=== PATIENT | female | born 1960 | race Caucasian/White ===

== ENCOUNTER → 2017-07-22 17:54 | Outpatient (CLI) | payer MEDICAID ==
[2012-04-29 14:38] VITALS: BMI 21.9
== END | disposition home or self-care (01) ==
LOC: D.MAMMO 15:45
DX: Z12.31 Encounter for screening mammogram for malignant neoplasm of breast (principal)

== ENCOUNTER 2017-08-15 16:32 | Emergency (ER) | payer MEDICAID ==
[2012-04-29 14:38] VITALS: BMI 21.9
[2017-08-15 18:44] LABS: BASOPHILS 0.3 % (0-2); EOSINOPHILS 2.7 % (0-7); HEMATOCRIT 35.6 % (36.0-48.0); HEMOGLOBIN 11.5 g/dL (12-16); IMMATURE GRANULOCYTES 0.1 % (0-5); LYMPHOCYTES 42.8 % (15-50); MCH 30.1 pg (26.0-34.0); MCHC 32.3 g/dL (31.0-37.0); MCV 93.2 fL (80.0-100.0); MEAN PLATELET VOLUME 9.6 fL (7.4-10.4); MONOCYTES 10.8 % (2-11); NEUTROPHILS 43.3 % (40-80); PLATELET COUNT 276 10x3/uL (130-400); RBC 3.82 10x6/uL (4.00-5.40); RDW 13.4 % (11.5-14.5); WBC 6.8 10x3/uL (4.8-10.8)
[2017-08-15 18:57] LABS: ALBUMIN 3.3 g/dL (3.4-5.0); ANION GAP 9.6 mmol/L (8-16); BILIRUBIN - TOTAL 0.21 mg/dL (0.2-1.3); CALCIUM 9.7 mg/dL (8.5-10.1); CARBON DIOXIDE 28.1 mmol/L (21.0-32.0); CREATININE - SERUM 0.9 mg/dL (0.6-1.3); POTASSIUM - SERUM 3.7 mmol/L (3.5-5.1); PROTEIN - SERUM 7.1 g/dL (6.4-8.2)
[2017-08-15 19:18] LABS: HCG SERUM NEGATIVE (NEGATIVE)
== END 2017-08-15 20:10 | disposition home or self-care (01) ==
LOC: D.ER 16:32
PROVIDERS: Family Medicine; Physician Assistant Medical
DX: S60.222A Contusion of left hand, initial encounter (principal); S60.212A Contusion of left wrist, initial encounter; S50.02XA Contusion of left elbow, initial encounter; S40.012A Contusion of left shoulder, initial encounter; V43.52XA Car driver injured in collision with other type car in traffic accident, initial encounter; Y93.89 Activity, other specified; Y92.410 Unspecified street and highway as the place of occurrence of the external cause; S16.1XXA Strain of muscle, fascia and tendon at neck level, initial encounter; S29.012A Strain of muscle and tendon of back wall of thorax, initial encounter; I10 Essential (primary) hypertension

== ENCOUNTER 2018-05-21 22:12 | Emergency (ER) | payer SELFPAY ==
[~2018-05-21] VITALS: Ht 170.2 cm; Wt 75.0 kg
[2018-05-21 22:34] VITALS: Ht 170.2 cm; Wt 75.0 kg
[2018-05-21] MEDS ORDERED: ZIAC 10-6.25 MG1 TAB PO (22:38)
[2018-05-21] MEDS ORDERED: CYMBALTA20 MG PO (22:39)
[2018-05-21] MEDS ORDERED: ATIVAN1 MG PO (22:39)
[2018-05-21] MEDS ORDERED: SYNTHROID125 MCG PO (22:39)
[2018-05-21] MEDS ORDERED: MOBIC7.5 MG PO (22:39)
[2018-05-22] MEDS ORDERED: MEDROL DOSE PACK4 MG PO (01:11)
[2018-05-22] MEDS ORDERED: TESSALON PERLE100 MG PO (01:11)
[2018-05-22] MEDS ORDERED: VALIUM 2 MG TAB2 MG PO (01:11)
[2018-05-22] MEDS ORDERED: ULTRAM50 MG PO (01:11)
[2018-05-22 01:38] VITALS: BP 171/100
== END 2018-05-22 01:39 | disposition home or self-care (01) ==
LOC: D.ER 22:12
DX: S01.01XA Laceration without foreign body of scalp, initial encounter (principal); W18.09XA Striking against other object with subsequent fall, initial encounter; Y93.89 Activity, other specified; Y92.012 Bathroom of single-family (private) house as the place of occurrence of the external cause; R55 Syncope and collapse

== ENCOUNTER 2018-10-24 01:07 | Emergency (ER) | payer MEDICAID ==
[~2018-10-24] VITALS: Ht 170.2 cm; Wt 84.5 kg
[~2018-10-24 01:07] MED LIST: ATIVAN1 MG PO; CYMBALTA20 MG PO; MEDROL DOSE PACK4 MG PO; MOBIC7.5 MG PO; SYNTHROID125 MCG PO; TESSALON PERLE100 MG PO; ULTRAM50 MG PO; VALIUM 2 MG TAB2 MG PO; ZIAC 10-6.25 MG1 TAB PO
[2018-10-24 01:11] VITALS: BP 170/98; Ht 170.2 cm; Wt 84.5 kg
[2018-10-24] MEDS ORDERED: DOXYCLINE (01:14)
== END 2018-10-24 02:21 | disposition home or self-care (01) ==
LOC: D.ER 01:07
DX: R05 Cough (principal); S39.011A Strain of muscle, fascia and tendon of abdomen, initial encounter; X58.XXXA Exposure to other specified factors, initial encounter; Y93.89 Activity, other specified; Y92.019 Unspecified place in single-family (private) house as the place of occurrence of the external cause; Z87.01 Personal history of pneumonia (recurrent)

== ENCOUNTER 2018-12-27 14:46 | Observation (INO) | payer MEDICAID ==
[~2018-12-27] VITALS: Ht 170.2 cm; Wt 71.8 kg
[~2018-12-27 14:46] MED LIST changes: +DOXYCLINE
--- NOTE | 2018-12-27 15:09 | NUR ---
GLUCOSE 103
[2018-12-27 15:10] LABS: BASOPHILS 0.3 % (0-2); EOSINOPHILS 1.7 % (0-7); HEMATOCRIT 30.5 % (36.0-48.0); HEMOGLOBIN 9.7 g/dL (12-16); IMMATURE GRANULOCYTES 0.2 % (0-5); LYMPHOCYTES 31.6 % (15-50); MCH 28.8 pg (26.0-34.0); MCHC 31.8 g/dL (31.0-37.0); MCV 90.5 fL (80.0-100.0); MEAN PLATELET VOLUME 8.8 fL (7.4-10.4); MONOCYTES 7.7 % (2-11); NEUTROPHILS 58.5 % (40-80); RBC 3.37 10x6/uL (4.00-5.40); RDW 14.9 % (11.5-14.5); WBC 12.3 10x3/uL (4.8-10.8)
--- NOTE | 2018-12-27 15:10 | NUR ---
STROKE ALERT BAND #[id number]
[2018-12-27 15:12] LABS: PLATELET COUNT 403 10x3/uL (130-400)
[2018-12-27 15:17] LABS: APTT 29.5 SECONDS (22.8-39.4); INR 1.06 (0.85-1.17); PROTIME 13.3 SECONDS (11.6-15.0)
[2018-12-27 15:25] LABS: ALBUMIN 3.3 g/dL (3.4-5.0); ALKALINE PHOSPHATASE 75 U/L (46-116); ALT (SGPT) 30 U/L (10-68); BILIRUBIN - TOTAL 0.22 mg/dL (0.2-1.3); CALC OSMOLALITY 282 mosm/kg (275-300); CALCIUM 9.6 mg/dL (8.5-10.1); CARBON DIOXIDE 30.1 mmol/L (21.0-32.0); CHLORIDE - SERUM 104 mmol/L (98-107); GLUCOSE 100 mg/dL (74-106); POTASSIUM - SERUM 3.8 mmol/L (3.5-5.1); PROTEIN - SERUM 6.9 g/dL (6.4-8.2); SODIUM 141 mmol/L (136-145); UREA NITROGEN 19 mg/dL (7-18); eGFR NON AFRICAN AMERICAN 60 mL/min (90-120)
[2018-12-27 15:36] LABS: CKMB 1.6 U/L (0.0-3.6); CREATINE KINASE 196 UL (21-215); THYROID STIMULATING HORMONE 14.71 uIU/mL (0.36-3.74); TROPONIN-I 0.025 ng/mL (0.000-0.060)
[2018-12-27 16:14] LABS: UDS - AMPHET NEGATIVE QUAL (NEGATIVE); UDS - BARB NEGATIVE QUAL (NEGATIVE); UDS - BENZO NEGATIVE QUAL (NEGATIVE); UDS - COCAINE NEGATIVE QUAL (NEGATIVE); UDS - OPIATE NEGATIVE QUAL (NEGATIVE); UDS - PCP NEGATIVE QUAL (NEGATIVE); UDS - THC NEGATIVE QUAL (NEGATIVE)
[2018-12-27 16:37] VITALS: BP 134/92
--- NOTE | 2018-12-27 18:30 | NUR ---
PT FINISHED IN MRI AND TRANSPORTED TO HER ROOM.
--- NOTE | 2018-12-27 18:33 | NUR ---
TRANSFER FROM ER BY W/C. CASEYINTED TO ROOM. CALL LIGHT IN REACH. WILL CONT. PLAN OF CARE.
--- NOTE | 2018-12-27 18:38 | NUR ---
PATIENT ARRIVED BY WHEELCHAIR FROM ED AND ADMITTED TO ROOM 2126. PATIENT REQUESTING SOMETHING TO EAT AND DRINK. PATIENT IS NPO UNTIL SWALLOW EVAL IS COMPLETE. PATIENT SITTING UP IN BED, FEMALE VISITOR AT BEDSIDE. NO DISTRESS.
[2018-12-27 19:37] LABS: APPEARANCE CLEAR (CLEAR); BILIRUBIN NEGATIVE (NEGATIVE); COLOR YELLOW (YELLOW); GLUCOSE NEGATIVE (NEGATIVE); KETONE NEGATIVE (NEGATIVE); NITRITE NEGATIVE (NEGATIVE); PROTEIN NEGATIVE (NEGATIVE); SPECIFIC GRAVITY 1.015 (1.005-1.020); UROBILINOGEN NORMAL (NORMAL)
[2018-12-27 20:47] LABS: CHOL - HDL RATIO 3.8 ratio (2.3-4.1); CHOLESTEROL, TOTAL 199 mg/dL (0-200); CKMB 1.8 U/L (0.0-3.6); CREATINE KINASE 211 UL (21-215); HDL CHOLESTEROL 52 mg/dL (32-96); LDL CHOLESTEROL 108 mg/dL (0-100); LDL-HDL RATIO 2.1 ratio (1.5-3.5); TRIGLYCERIDE 197 mg/dL (30-200); TROPONIN-I 0.023 ng/mL (0.000-0.060)
[2018-12-27] MEDS ORDERED: CYMBALTA60 MG PO (21:17)
[2018-12-27] MEDS ORDERED: SYNTHROID137 MCG PO (21:18)
[2018-12-27] MEDS ORDERED: ROPINIROLE HCL1 MG PO (21:21)
[2018-12-27] MEDS ORDERED: PEPCID40 MG PO (21:22)
[2018-12-27] MEDS ORDERED: ADDERALL XR 3030 MG PO (21:23)
[2018-12-27 21:38] VITALS: BP 107/53; BMI 24.8
--- NOTE | 2018-12-27 21:49 | NUR ---
RECIEVED PRIOR TO SHIFT CHANGE. ALERT AND ORIENTED X4. JUMPING AROUND THE BED AND CLIMBING IN AND OUT OF BED. VERY HYPERACTIVE. STATES SHE HAS ADHD. FULL ROM TO ALL EXTREMITIES INCLUDING HEAD AND NECK. GOT UP AND LEANED HER BODY SIDEWAYS AND AMBULATED TO SHOW THIS NURSE HOW SHE WAS WALKING PRIOR TO ADMIT. BALANCE GOOD. NO DEFICITS OBSERVED. VERY UPSET ABOUT BEING NPO WHEN ADMITTED. PUSHING CALL LIGHT SEVERAL TIMES ASKING FOR FOOD OR WATER TO DIFFERENT PEOPLE. ALSO, WANTING HER MEDICATIONS RESTARTED ESPECIALLY HER ADDERALL. STATES SHE CAN'T SLEEP WITHOUT IT. WHEN INTERVIEWED ABOUT HER MEDICATIONS STATED SHE HAS'NT HAD HER ADDERALL IN MONTHS. CALLED BECKIE RYDER WITH NEW ORDERS FOR AHA DIET, SPEECH TO EM DISCUSSED LABS WITH NEW LAB ORDERS. STATED WILL HAVE TO SEE HER TOMORROW TO LOOK AT MEDICATIONS. RECIEVED SANDWICH BOX AND REQUESTED 2 ICE CREAMS. ATE 100%. ASSESSMENT COMPLETED.
[2018-12-28] VITALS: BP 113/61
[2018-12-28 03:03] LABS: CKMB 1.4 U/L (0.0-3.6); CREATINE KINASE 176 UL (21-215)
[2018-12-28 03:10] LABS: TROPONIN-I < 0.017 ng/mL (0.000-0.060)
[2018-12-28 04:00] VITALS: BP 141/83
--- NOTE | 2018-12-28 07:10 | NUR ---
RECEIVED REPORT. ASSUMED CARE OF PATIENT. CALL LIGHT WITHIN REACH. PATIENT WITH FEMALE FRIEND AT BEDSIDE. PATIENT AWAKE, ORIENTED, UP AND DOWN OUT OF BED WITH NO NEURO DEFICITS NOTED. NO DISTRESS.
--- NOTE | 2018-12-28 08:04 | NUR ---
CALLED TO ROOM BY PATIENTS FRIEND THAT IS STAYING WITH HER TO TRY AND KEEP HER CALM AND REPORTS THAT PATIENT HAS JUMPED OOB AGAIN AND RAN TO THE BATHROOM AND NOW SHE IS SITTING IN THE BATHROOM FLOOR. PATIENTS CLOTHES ARE SOAKING WET. PATIENT SITTING IN FLOOR. ASSISTED PATIENT OOB WITH MINIMAL ASSIST ONTO TOILET. LARGE BM. PATIENT BED MAKE ONCE AGAIN. ASSISTED PATIENT BACK TO BED AND AGAIN REPLACED TELEMETRY LEAD. SIDE RAILS UP FOR SAFETY. CALL LIIGHT WITHIN REACH. BED ALARM SET TO FULL SURFACE AREA. PATIENTS FRIEND REMAINS AT BEDSIDE. NO DISTRESS.
--- NOTE | 2018-12-28 08:10 | NUR ---
ALAN NOTIFIED THAT PATIENT REQUESTING TO GO HOME. ALAN TO UNIT SOON.
--- NOTE | 2018-12-28 08:19 | NUR ---
MEDICATED FOR PAIN AT THIS TIME. NO DISTRESS. CONTINUES WITH FREQUENT MOVEMENTS OF LEGS IN BED. CALL LIGHT WITHIN REACH.
--- NOTE | 2018-12-28 08:32 | NUR ---
ASSISTED PATIENT OOB AGAIN TO RESTROOM, PATIENT ON THE TOILET, NO URINATION OR DEFICATION, AND GET UP TO GET BACK IN BED. PATIENT CONTINUES WITH FREQUENT THRASHING OF LEGS, STATES SHE HAS RESTLESS LEGS. ALSO STATES SHE WAS TRYING TO SAVE MONEY BY NOT MAKING MULTIPLE TRIPS BACK AND FORTH TO THE PHARMACY TO PICK HER MEDICATION UP AND HAS NOT HAD HER XANAX IN 3 DAYS.
--- NOTE | 2018-12-28 09:20 | NUR ---
PATIENT HAD ALREADY HAD 50MCG OF SYNTHROID AND RECIEVED NEW ORDERS FOR 137 MCG TO BE GIVEN. CLARIFICATION RECCEIVED AND TOTAL SHOULD ONLY BE 137MCG. 50 ALREADY GIVEN, CONSULTED WITH PHARMACY AND ONE 88MCG TAB WILL BE CLOSE WE CAN GET TO ADMINISTER A TOTAL OF 137 MCG TO THE PATIENT. ORDER PLACED FOR SYNTHROID 88MCG X 1.
[2018-12-28 09:21] VITALS: BP 114/54
[2018-12-28 09:28] LABS: CKMB 1.9 U/L (0.0-3.6); CREATINE KINASE 169 UL (21-215)
[2018-12-28 09:33] LABS: TROPONIN-I < 0.017 ng/mL (0.000-0.060)
[2018-12-28 12:03] VITALS: Ht 170.2 cm; Wt 71.8 kg
--- NOTE | 2018-12-28 12:10 | NUR ---
NEW ORDER RECIEVED FOR PATIENT TO HAVE BENGAY APPLIED TO LEGS FOR MUSCLE SPASMS AND CRAMPS PRN. ORDER INPUTTED TO SYSTEM. PATIENT AWARE OF NEW ORDER.
--- NOTE | 2018-12-28 12:19 | NUR ---
CALLED AND SPOKE TO [facility] AND THEY WILL BE HERE IN 30 MINUTES TO PICK PATIENT UP.
--- NOTE | 2018-12-28 13:01 | NUR ---
PATIENT IS REQUESTING HER SON AND OR DAVID BE GIVEN ANY INFORMATION REGARDING PATIENT AND SHE WANTS HER SON REMOVED HER NEXT OF KIN.
[2018-12-28 13:24] VITALS: BP 138/77
--- NOTE | 2018-12-28 13:44 | MORECARE ---
CASE MANAGEMENT DISCHARGE SUMMARY PATIENT: YU KUO UNIT: [id number] ADM DATE: 12/27/18 AGE: 58 : 58 SEX: F ROOM/BED: D.[facility]7 AUTHOR: GIDEON MOSCOSO PHYSICIAN: REFERRING PHYSICIAN: LUTHER SWIFT MD DATE OF SERVICE: 12/28/18 Discharge Plan Patient Name: YU KUO Facility: [facility]:[place] : 1960 Planned Disposition: Anticipated Discharge Date: Discharge Date: Expected LOS: Initial Reviewer: [email or web address] Initial Review Date: 12/28/2018 Generated: 12/28/18 2:44 pm Patient Name: YU KUO Page [phone] at 1344 All edits/amendments must be made on the electronic document DICTATION DATE: 12/28/18 1344 HIGH SCHOOL DRAFTING TEACHER: CARMINA 12/28/18 1344 RPT#: [id number] DC DATE: STATUS: ADM IN [facility] [address] [place] [address] END OF REPORT
--- NOTE | 2018-12-28 13:52 | NUR ---
RAND MAKING CUSTOMER SERVICE ROUNDS THIS DESILVERIZER ABOUT TO PLACE ORDER FOR PSYCH CONSULT FOR FLIGHT OF IDEAS FROM PATIENT. PATIENT STATES SHE IS WITHDRAWING FROM ATIVAN AND SHE HASN'T HAD ANY SINCE SHE HAS BEEN HERE. INFORMED THAT PATIENT WAS STARTED AND GIVEN 1MG ATIVAN THIS AM. ALSO THYROID MEDICATION WAS RESTARTED FOR HYPOTHYROIDISM. ALSO INFORMED RAND THAT DUE TO PATIENTS FLIGHT OF IDEAS, FREQUENT CHANGE OF SUBJECT, AND SPEECH THERAPY SUGGESTING FRONTAL LOBE DEFICIT, THAT PSYCH EVALUATION HAS BEEN ORDERED. RAND SAYS THAT PATIENT STATES SHE FEEL THIS MORNING IN THE BATHROOM AND FEELS HER JAW IS BROKEN. THE PATIENT SAT DOWN IN THE FLOOR FROM THE TOILET WITNESSED BY HER FRIEND THAT STAYED AT BEDSIDE WITH HER THAT IS A NURSE. THANKED RAND FOR DISCUSSING PATIENT WITH THIS DESILVERIZER AND ALL APPROPRIATE ORDERS WILL BE PLACED.
--- NOTE | 2018-12-28 14:40 | NUR ---
THIS GAME FARM HELPER RETURNED TO ROOM TO REMOVED IV FROM RIGHT AC. PATIENT IS VIDEO RECORDING HER IV SITE AND HERSELF THIS GAME FARM HELPER AND SAFETY PROFESSIONALACOSTA ENTER ROOM. TELEMETRY REMOVED, IV CATHETER REMOVED FROM RIGHT AC. CATHETER TIP INTACT. NO BLEEDING FROM SITE. 2X2 GAUZE APPLIED AND SECURED WITH TAPE. PATIENT AKSING ABOUT HOW SHE CAN HIRE AN WebTVER THREAD CUTTER TENDER. THIS GAME FARM HELPER TELLS THE PATIENT SHE HAS NO KNOWLEDGE OF USING THAT SERVICE. THE PATIENT THEN QUESTIONS THIS GAME FARM HELPER ABOUT MEDICAL BACKGROUND, AGAIN THIS GAME FARM HELPER EXPRESSES TO PATIENT THAT THIS GAME FARM HELPER HAS NO KNOWLEDGE FOR QUESTIONS SHE IS ASKING. PATIENT PROCEEDED TO STAND UP AND GET DRESSED AND THIS GAME FARM HELPER AND SAFETY PROFESSIONAL LEFT THE ROOM.
--- NOTE | 2018-12-28 14:42 | NUR ---
IN PATIENT ROOM APPROX 1430 TO DISCUSS PATIENT PLAN OF CARE AND DISCUSS PSYCHIATRIC ISSUES PATIENT HAS BEEN DISPLAYING TO STAFF AND TO DISCUSS HAVING A PSYCH EVALUATION COMPLETED. PATIENT UPSET AND REQUEST TO LEAVE AMA. AMA PAPER PRINTED AND TAKEN BACK TO PATIENT ROOM WITH . PATIENT STATES THAT SHE DOES NOT NEED A PSYCH EVALUATION. EXPLAINED TO PATIENT THAT THE NURSES WERE DESCRIBING MANIFESTATIONS WITH NO ORGANIC CAUSE SUCH JUMPING AROUND ROOM, NOT SPEAKING, ACTING STIFF LIKE A MANIKIN AND PATIENT VERY AGGRESSIVELY HOLLORS SHE HAS NO PROBLEM AND HE DIDN'T SEE HER DOING THAT AND SHE IS CALLING HER FLOOR GRINDER. PATIENT VERBALLY ATTACKING FOR NO REASON HE IS BEING PROFESSIONAL IN ALL ASPECTS. LEFT ROOM AND PATIENT SIGNED AMA FORM AT 1435.
--- NOTE | 2018-12-28 15:02 | NUR ---
PATIENT LEFT UNIT AMBULATING WITH ALL PERSONAL BELONGING. PATIET IN NO DISTRESS UPON LEAVING UNIT.
--- NOTE | 2018-12-29 08:36 | MORECARE ---
CASE MANAGEMENT DISCHARGE SUMMARY PATIENT: YU KUO UNIT: [id number] ADM DATE: 12/27/18 AGE: 58 : 58 SEX: F ROOM/BED: D.6152 AUTHOR: GIDEON MOSCOSO PHYSICIAN: REFERRING PHYSICIAN: LUTHER SWIFT MD DATE OF SERVICE: 12/29/18 Discharge Plan Patient Name: YU KUO Facility: [facility]:[place] : 1960 Planned Disposition: Left Against Medical Advice Anticipated Discharge Date: 12/28/18 Discharge Date: 12/28/2018 Expected LOS: 1 Initial Reviewer: AYAH Initial Review Date: 12/28/2018 Generated: 12/29/18 9:36 am Comments DCP- Discharge Planning Updated by AYAH: Nasrin Singletary on 12/28/18 12:[address] Patient Name: YU KUO Admission Status: ER Accout number: [id number] Admission Date: 12-27-2018 : 1960 Admission Diagnosis: Attending: LUTHER SWIFT Current LOS: 1 Anticipated DC Date: Planned Disposition: Primary Insurance: [place] [employer] Discharge Planning Comments: CM CONSULT FOR PT THAT BEST FRIEND STATED TO THE NURSE THAT SHE HAD NOT BEEN TAKING HER MEDICATION BECUASE SHE DID NOT HAVE GAS MONEY TO GET TO PHARMACY. CM SPOKE WITH PT AND PT STATES THAT IS SOMETHING MY BEST FRIEND MADE UP. I GET AND TAKE MY MEDICATIONS. I USE DR. TORSTEN BARRIENTOS AND [facility]. CM DID PROVIDE HER WITH [facility] NUMBERS FOR DELIVERY SERVICES IF NEEDED. CM ALSO ASKED HER IF BUYING HER MEDS WAS AN ISSUE AND SHE STATED I HAVE INSURANCE THAT COVERS THAT AND I HAVE NO PROBLEMS WITH THIS IAND DO NOT KNOW WHY ANYONE IS SAYING THIS. I INSTRUCTED HER TO LET NURSE KINOW IF SHE HAS ANY QUESTIONS OR NEEDS SHE MIGHT HAVE DURING HER STAY. CM WILL CONTINUE TO FOLLOW. Batch Mixer Operator: Nasrin Singletary Last DP export: 12/28/18 12:44 pm Patient Name: YU KUO Page [phone] at 0836 All edits/amendments must be made on the electronic document DICTATION DATE: 12/29/18835 USER EXPERIENCE ARCHITECT: CARMINA 12/29/1836 RPT#: [id number] DC DATE:12/28/18 STATUS: DIS IN [facility] [address] [facility] [place] [address] END OF REPORT
== END 2018-12-28 15:03 | disposition left against medical advice (07) ==
LOC: D.ER 14:46 → D.M2 17:39 → OBSVTIME 17:39 → D.M2 17:39
PROVIDERS: Emergency Medicine; ADMIT Internal Medicine Nephrology; ATTEND Internal Medicine Nephrology
DX: F45.0 Somatization disorder (principal); E03.9 Hypothyroidism, unspecified; D64.9 Anemia, unspecified; I10 Essential (primary) hypertension; M06.9 Rheumatoid arthritis, unspecified; N17.9 Acute kidney failure, unspecified; C34.90 Malignant neoplasm of unspecified part of unspecified bronchus or lung; Z91.19 Patient's noncompliance with other medical treatment and regimen

== ENCOUNTER 2019-01-01 09:27 | Inpatient (IN) | payer MEDICAID ==
[~2019-01-01] VITALS: Ht 170.2 cm; Wt 86.5 kg
[2019-01-01] VITALS (10 sets, daily range): BP systolic 101–130; BP diastolic 50–94; BMI 29.9
[~2019-01-01 09:27] MED LIST changes: +ADDERALL XR 3030 MG PO; +CYMBALTA60 MG PO; +PEPCID40 MG PO; +ROPINIROLE HCL1 MG PO; +SYNTHROID137 MCG PO
[2019-01-01 10:05] LABS: BASOPHILS 0.3 % (0-2); EOSINOPHILS 2.3 % (0-7); IMMATURE GRANULOCYTES 0.2 % (0-5); LYMPHOCYTES 36.3 % (15-50); MCH 27.6 pg (26.0-34.0); MCHC 32.1 g/dL (31.0-37.0); MONOCYTES 9.1 % (2-11); NEUTROPHILS 51.8 % (40-80); PLATELET COUNT 382 10x3/uL (130-400); RBC 2.21 10x6/uL (4.00-5.40); RDW 15.5 % (11.5-14.5); WBC 12.2 10x3/uL (4.8-10.8)
[2019-01-01 10:07] LABS: HEMOGLOBIN 6.1 g/dL (12-16)
[2019-01-01 10:11] LABS: APPEARANCE CLEAR (CLEAR); BILIRUBIN NEGATIVE (NEGATIVE); COLOR YELLOW (YELLOW); GLUCOSE NEGATIVE (NEGATIVE); KETONE NEGATIVE (NEGATIVE); NITRITE NEGATIVE (NEGATIVE); PROTEIN NEGATIVE (NEGATIVE); UROBILINOGEN NORMAL (NORMAL)
[2019-01-01 10:19] LABS: UDS - AMPHET NEGATIVE QUAL (NEGATIVE); UDS - BARB NEGATIVE QUAL (NEGATIVE); UDS - BENZO NEGATIVE QUAL (NEGATIVE); UDS - COCAINE NEGATIVE QUAL (NEGATIVE); UDS - OPIATE NEGATIVE QUAL (NEGATIVE); UDS - PCP NEGATIVE QUAL (NEGATIVE); UDS - THC NEGATIVE QUAL (NEGATIVE)
[2019-01-01 10:23] LABS: ALBUMIN 3.7 g/dL (3.4-5.0); ANION GAP 14.7 mmol/L (8-16); BILIRUBIN - TOTAL 0.35 mg/dL (0.2-1.3); CALCIUM 10.6 mg/dL (8.5-10.1); CARBON DIOXIDE 25.7 mmol/L (21.0-32.0); PROTEIN - SERUM 7.2 g/dL (6.4-8.2); T4 THYROXIN - FREE 1.1 ng/dL (0.76-1.46); THYROID STIMULATING HORMONE 33.23 uIU/mL (0.36-3.74)
[2019-01-01 10:29] LABS: POTASSIUM - SERUM 2.4 mmol/L (3.5-5.1)
--- NOTE | 2019-01-01 11:00 | NUR ---
PT ORIGINALLY PLACED IN SAFETY ROOM, SHE WAS MOVED TO ROOM E12 AT THIS TIME TO FACILITATE MEDICAL TREATMENT AND MONITORING.
[2019-01-01 11:25] LABS: % SATURATION 4 % (15-55); IRON 18 ug/dl (35-150); TOTAL IRON BIND CAPACITY 428 ug/dl (260-445); UNSAT IRON BIND CAPACITY 410 ug/dl (150-375)
[2019-01-01 11:45] LABS: FERRITIN 9 ng/mL (3-244); LDH 307 U/L (81-234)
--- NOTE | 2019-01-01 11:53 | NUR ---
GUIAC TEST COMPLETED. NEGATIVE FOR OCCULT BLOOD.
[2019-01-01 12:30] LABS: PATH REVIEW PERIPHERAL SMEAR REVIEWED
--- NOTE | 2019-01-01 13:55 | NUR ---
ADMISSION ORDER PLACED AT 1331. NILDA SIMS CALLED AT 1331 FOR BED REQUEST. RM# [id number] GIVEN BY BETHANY @ 2328.
--- NOTE | 2019-01-01 14:31 | NUR ---
BLOOD FOR TRANSFUSION NOT YET READY AT TIME OF ADMITTANCE TO ICU
--- NOTE | 2019-01-01 14:33 | NUR ---
REPORT TO GREGORIA KUNZ @[phone]
--- NOTE | 2019-01-01 15:31 | NUR ---
REPORT RECEIVED. ASSESSMENT COMPLETE PER FLOW SHEET. VSS. DR FELIPE CALLED GIVEN UDPATE. NEW ORDERS RECIEVED
--- NOTE | 2019-01-01 16:40 | NUR ---
dr che at bedside given update
--- NOTE | 2019-01-01 18:18 | NUR ---
PT ASSISTED TO BEDSIDE COMMODE DENIES NEEDS
[2019-01-02] VITALS (9 sets, daily range): BP systolic 101–138; BP diastolic 54–86; Ht 170.2 cm; Wt 86.5 kg
[2019-01-02 04:17] LABS: BASOPHILS 0.5 % (0-2); EOSINOPHILS 4.7 % (0-7); HEMATOCRIT 24.1 % (36.0-48.0); HEMOGLOBIN 7.8 g/dL (12-16); IMMATURE GRANULOCYTES 0.2 % (0-5); LYMPHOCYTES 38.6 % (15-50); MCH 28.3 pg (26.0-34.0); MCHC 32.4 g/dL (31.0-37.0); MCV 87.3 fL (80.0-100.0); MEAN PLATELET VOLUME 9.1 fL (7.4-10.4); MONOCYTES 17.3 % (2-11); NEUTROPHILS 38.7 % (40-80); PLATELET COUNT 264 10x3/uL (130-400); RBC 2.76 10x6/uL (4.00-5.40); RDW 15.1 % (11.5-14.5); WBC 6.6 10x3/uL (4.8-10.8)
[2019-01-02 04:25] LABS: CALCIUM 9.1 mg/dL (8.5-10.1); CARBON DIOXIDE 25.3 mmol/L (21.0-32.0); CHLORIDE - SERUM 104 mmol/L (98-107); GLUCOSE 98 mg/dL (74-106); MAGNESIUM - SERUM 1.9 mg/dL (1.8-2.4); PHOSPHOROUS 2.8 mg/dL (2.5-4.9); SODIUM 140 mmol/L (136-145)
[2019-01-02 04:26] LABS: CALC OSMOLALITY 277 mosm/kg (275-300); CREATININE - SERUM 0.7 mg/dL (0.6-1.3); POTASSIUM - SERUM 2.8 mmol/L (3.5-5.1); UREA NITROGEN 11 mg/dL (7-18); eGFR NON AFRICAN AMERICAN > 90 mL/min (90-120)
--- NOTE | 2019-01-02 08:12 | NUR ---
PT C/O ABD PAIN RATES 10 ON SCALE 1 TO 10. VSS, PT CALM AND COOPERATIVE. MOUTH CARE KIT GIVEN DUE TO PT IS NPO. SPOKE TO MED IMAGING RE UPPER GI TODAY.
--- NOTE | 2019-01-02 08:59 | NUR ---
PT TO MEDICAL IMAGING FOR UPPER GI.
--- NOTE | 2019-01-02 09:50 | NUR ---
PT BACK FROM MED IMAGING. C/O ABD PAIN. DILAUDID GIVEN WITH ADEQUATE R/O PAIN VERB BY PT.
--- NOTE | 2019-01-02 13:42 | NUR ---
1ST UNIT PRBC STARTED.
--- NOTE | 2019-01-02 14:05 | NUR ---
DR OSMAN AT . TALKING TO PT AND SON ABOUT PLAN.
--- NOTE | 2019-01-02 16:11 | NUR ---
BLOOD CONTINUES INFUSING. VITALS REMAIN STABLE. WILL CONTINUE TO MONITOR.
--- NOTE | 2019-01-02 18:46 | NUR ---
RESTING IN BED. DENIES PAIN. DENIES NEEDS.
--- NOTE | 2019-01-03 00:10 | NUR ---
SPOKE WITH PERSONAL CARE AID CRUZITO ABOUT PT REFUSING FALL PRECAUTIONS AND THAT SHE STATED THAT SHE DID NOT FALL. NO CSTARS NEEDED. INFORMED HER THAT PT HAD REQEUSTED TO SPEAK WITH PERSONAL CARE AID BUT PT IS NOW ASLEEP.
[2019-01-03 04:00] VITALS: BP 151/91
--- NOTE | 2019-01-03 08:00 | NUR ---
PATIENT REQUESTED A SHOWER. I INFORMED HER THAT I COULDN'T PROMISE ANYTHING BUT I WOULD TRY. SHE THE SAID HER HAIR FELT YOGI DIRTY. I INFROMED HER THAT I HAD A SHOWER CAP THAT I COULD BRING. SHE SAID THAT WAS FINE. SHE ALSO ASKED FOR A DIFFERENT TYPE OF HAIR BRUSH THE ONE SHE HAS HAS BRISTLES. I REPLIED I HAVE A COMB. SHE SAID THAT WOULD BE GREAT. I LEFT THE ROOM TO SEE ANOTHER PATIENT. COMING OUT I NOTICED HER CALL LIGHT ON SO I WENT IN THERE. SHE WAS IN THE BATHROOM AT THE TIME. DENIED ANY NEEDS. DENIED HITTING THE CALL LIGHT AND TOLD ME THAT THE CALL LIGHT DOES NOT WORK. I PRESSED THE CALL LIGHT MYSELF AND ASSURED HER THAT IT WAS WORKING CORRECTLY. SHE THEN INFORMED ME THAT SHE WOULD APPRECIATE SOME SUPPLIES TO DO A SPOT BATH. I TOLD HER I COULD SUPPLY THOSE WELL WITH NO PROBLEMS.
[2019-01-03 08:11] LABS: ALBUMIN 3.2 g/dL (3.4-5.0); ALKALINE PHOSPHATASE 76 U/L (46-116); BILIRUBIN - TOTAL 0.43 mg/dL (0.2-1.3); CALC OSMOLALITY 273 mosm/kg (275-300); CALCIUM 8.9 mg/dL (8.5-10.1); CARBON DIOXIDE 22.4 mmol/L (21.0-32.0); CHLORIDE - SERUM 103 mmol/L (98-107); CREATININE - SERUM 0.7 mg/dL (0.6-1.3); GLUCOSE 87 mg/dL (74-106); PROTEIN - SERUM 6.4 g/dL (6.4-8.2); SODIUM 138 mmol/L (136-145); UREA NITROGEN 10 mg/dL (7-18); eGFR NON AFRICAN AMERICAN > 90 mL/min (90-120)
[2019-01-03 08:13] LABS: ALT (SGPT) 35 U/L (10-68); POTASSIUM - SERUM 4.2 mmol/L (3.5-5.1)
[2019-01-03 08:41] LABS: BASOPHILS 0.2 % (0-2); EOSINOPHILS 5.3 % (0-7); IMMATURE GRANULOCYTES 0.7 % (0-5); LYMPHOCYTES 29.4 % (15-50); MCH 28.9 pg (26.0-34.0); MCHC 32.2 g/dL (31.0-37.0); MONOCYTES 6.7 % (2-11); NEUTROPHILS 57.7 % (40-80); RDW 15.7 % (11.5-14.5); WBC 6.1 10x3/uL (4.8-10.8)
[2019-01-03 08:42] LABS: HEMATOCRIT 32.3 % (36.0-48.0); HEMOGLOBIN 10.4 g/dL (12-16); MCV 89.7 fL (80.0-100.0); PLATELET COUNT 194 10x3/uL (130-400)
[2019-01-03 10:25] VITALS: BP 141/80
--- NOTE | 2019-01-03 11:15 | NUR ---
NILDA LUCAS WENT TO TALK TO PATIENT. I INFORMED HER OF WHAT I KNEW OF HER COMPLAINTS. PATIENT IN PAIN 10/10 PAIN MED AND ZOFRAN GIVEN. PATIENT BP WAS ELEVATED. PATIENT WAS EXCITABLE AND CONCERNED ABOUT HER HIGH BLOOD PRESSURE. I EXPLAINED THAT SHE WAS IN PAIN WELL UPSET SO THAT IS NOT HELPING HER BLOOD PRESSURE EITHER. I NOTICED SHE HAD PROCAL RUNNING AT 100 ML/H AND NS AT 75 ML/H. I TURNED DOWN THE NS TO 50 ML/H. CORDS UNTANGLED FROM THE IV POLE. PHONE, CL, LEMON SWABS, AND BEDSIDE TABLE IN REACH. SUPPLIES IN ROOM FOR THE SPOT BATH. NO FURTHER NEEDS AT THIS TIME. WCTM
--- NOTE | 2019-01-03 13:00 | NUR ---
HAD TREE RECHECK BP. STILL HIGH 182/80S. WILL ALERT JULIA BABIN APN AND GET ADVISE. CL IN REACH. NO FURTHER NEEDS AT THIS TIME
[2019-01-03 13:14] VITALS: BP 184/103
--- NOTE | 2019-01-03 13:18 | NUR ---
ORDER FOR APRESOLINE GIVEN VIA PHONE FROM BECKIE BABIN. GAVE PER INSTRUCTION TO PATIENT. PATIENT ASKED WHETHER OR NOT SHE WAS GETTING HER BP MEDICATIONS. I LOOKED IN THE CHART TO SEE WHAT SHE HAD BEEN GIVEN. EXPLAINED TO HER THAT SHE WAS NOT GETTING ANY BP MEDICATIONS. SHE REPLIED THAT SHE HAS HAD 2 TIAS THIS PAST WEEK. I RESPONDED THAT WE CAN GO OVER HER HOME MED REC TO SEE WHAT SHE TAKES AT HOME FOR BP CONTROL. SHE SAID LORAZEPAM WAS PRESCRIBED BY DR PARDO FOR HER BP. AND THAT SHE TAKES ONE IN THE MORNING AND TWO AT NIGHT. I WENT OVER ALL MEDICATIONS WITH HER AND REVIEWED THEM AT THIS TIME. WILL INFORM BECKIE BABIN OF CHANGES. WCTM. CL IN REACH
[2019-01-03] MEDS ORDERED: STRATTERA100 MG PO (13:29)
[2019-01-03] MEDS ORDERED: ATIVAN1 MG PO (13:31)
[2019-01-03] MEDS ORDERED: ROPINIROLE HCL2 MG PO (13:33)
[2019-01-03] MEDS ORDERED: BISOPROLOL-HCT1 EACH PO (13:34)
--- NOTE | 2019-01-03 14:45 | NUR ---
DR JACQUI SMITH. REQUESTED THAT WE ALLOW PATIENT MEDICATIONS WITH SIPS OF WATER. HE AUTHORIZED. WILL INFORM BECKIE BABIN SO WE CAN RESTART PATIENT HOME MEDICATIONS.
--- NOTE | 2019-01-03 16:46 | NUR ---
PATIENT 03/05. CO OF HEADACHE, STOMACH ACHE, AND BACK PAIN. FAMILY IN ROOM. ACETAMINOPHEN AND HYDROMORPHONE PROVIDED. PATIENT AGAIN ASKED QUESTIONS AGAIN WHETHER OR NOT SHE HAS PREVIOUSLY HAD BP MEDICATION BESIDES WHAT I GAVE HER EARLIER. I RESPONDED NO. SHE CONVERS WITH FAMILY AND THEN ASKED WHETHER BECKIE BABIN OR GREGORIA HAYNES WHERE IN HER ROOM AT THE SAME TIME. I RESPONDED I AM ONLY AWARE OF WHAT I AM DOING AT THE MOMENT AND DID NOT NOTICE WHETHER OR NOT THE TWO WERE IN THE ROOM AT THE SAME TIME OR NOT. CL IN REACH. PATIENT AND FAMILY HAD NO FURTHER INSTRUCTIONS. WCTM
[2019-01-03 17:32] VITALS: BP 124/64
--- NOTE | 2019-01-03 18:00 | NUR ---
IV THERAPY DC'ED IN RIGHT WRIST. PT SISTER STATED THAT IT WAS RED. AND WANTED IT LOOKED AT. I OBLIGED. TRIED TO FLUSH IV AND IT CAUSED PAIN. NO RETURN OF BLOOD. I REMOVED CATH WITH TIP INTACT. CL IN REACH. WCTM
--- NOTE | 2019-01-03 19:40 | NUR ---
ADMINISTRATIVE FELLOW APPROACHED THIS ACCOUNTING OFFICER AND ASKED IF I COULD SALINE LOCK PT BECAUSE SHE WANTED TO TAKE A SHOWER. STAFF ENTERED ROOM AND PT WAS STANDING BY THE BED GATHERING HER CLOTHES. STATES SHE WANTS TO PUT HER PAJAMAS ON AFTER HER SHOWER. ALERT AND ORIENTED X4. ASKING ADMINISTRATIVE FELLOW TO DO MULTIPLE TASKS AT THIS TIME. GAIT STEADY. NS @ 5 ML/HR AND PROCAL @ 100 ML/HR INFUSING IN LT HAND. RUE SLIGHTLY PINK. C/O PAIN IN LT HIP AND LT KNEE RATING 10. NOT TIME FOR PAIN MED YET. EXPLAINED THIS TO PT. ADMINISTRATIVE FELLOW GATHERING SUPPLIES FOR PT TO TAKE SHOWER.
--- NOTE | 2019-01-03 19:45 | NUR ---
GEOVANNY CAME TO THIS EDUCATION PARAPROFESSIONAL AND STATES THAT THE PT SAYS SHE FELL BY THE TOILET AND WANTED TO REPORT IT BUT IS STANDING UP IN THE SHOWER TAKING A BATH. THIS EDUCATION PARAPROFESSIONAL IMMEDIATELY GOES TO CHECK ON PT AND SHE IS STILL IN THE SHOWER BATHING. EDUCATION PARAPROFESSIONAL ASKED PT WHAT HAPPENED AND SHE STATES, "MY LEFT KNEE GAVE WAY LIKE IT ALWAYS DOES AND IT TOUCHED THE GROUND." LT KNEE IS PINK BUT NO VISIBLE INJURIES. HAD RATES PAIN IN LT KNEE 10 5 MINUTES AGO. STATES SHE NEEDS A KNEE REPLACEMENT. INFORMED PT THAT STAFF NEEDED TO ASSIST HER BACK TO BED BECAUSE SHE IS NOW A FALL RISK. SHE ARGUED WITH STAFF. EXPLAINED PROTOCOL OF YELLOW GOWN, NONSLIP SOCKS AND BED ALARM. PT STILL ARGUING AND STATES, "I DIDNT FALL. MY KNEE JUST TOUCHED THE GROUND. I CAUGHT MYSELF. MY BUTT NEVER TOUCHED THE GROUND." YELLOW GOWN, SOCKS AND BED ALARM ON AT THIS TIME. PT TOLD STAFF TO SHUT HER DOOR AND STAFF EXPLAINED THAT THE ITS POLICY THAT IF PT IS A FALL RISK THAT THE DOOR HAS TO BE LEFT OPEN. SHE STATES, "IM NOT WEARING THIS GOWN OR THE SOCKS AND IM NOT STAYING IN HERE WITH THE DOOR OPEN. I WANT TO SPEAK TO THE DIRECTOR OF SPECIAL SERVICES." NOTIFIED GREGORIA WESTGRAVEL SCREENER OF INCIDENT AND PT COMPLAINTS. STATES SHE IS IN DETENTION AT THIS TIME AND CANT COME BUT WILL LET ONCOMING CIVIL DRAFTING TECHNICIAN KNOW. INFORMED PT OF THIS. CHARGE NURSE AWARE. REFUSAL OF BED ALARM FORM TAKEN TO PT AND EXPLAINED AND WITNESSED PER STAFF X2. PT AGREED AND WANTED TO TAKE PICTURE OF THE FORM. INFORMED PT THAT SHE COULD HAVE A COPY OF IT.
--- NOTE | 2019-01-03 19:53 | NUR ---
PT REQUESTED TO SPEAK WITH CHARGE NURSE. I ENTERED THE ROOM TO TRY AND RESOLVE ANY ISSUES. PT STATED WE HAD "SCREWED UP PATRICIA", WHEN ASKED WHAT HAD HAPPENED SHE SAID WE HAD NOT GIVEN ANY OF HER HOME MEDICATIONS. I WAS TRYING TO REVIEW THE CHART TO VERIFY ENTRY OF HOME MEDICATIONS AND VERIFY PT STORY OF RECIEVING MEDS IN ICU. PT FAMILY ARRIVED AND PT ASKED ME TO LEAVE THE ROOM SO SHE COULD TALK TO THEM.
[2019-01-03 20:55] VITALS: BP 126/69
--- NOTE | 2019-01-03 21:13 | NUR ---
REQUESTING PAIN MED DURING MED PASS. MEDICATED WITH DILAUDID FOR C/O PAIN IN "KNEE, BACK, ABD". CL IN REACH.
--- NOTE | 2019-01-04 00:10 | NUR ---
SPOKE WITH ART OBJECTS SALESPERSON CRUZITO ABOUT PT REFUSING FALL PRECAUTIONS AND THAT SHE STATED THAT SHE DID NOT FALL. NO CSTARS NEEDED. INFORMED HER THAT PT HAD REQEUSTED TO SPEAK WITH ART OBJECTS SALESPERSON BUT PT IS NOW ASLEEP.
--- NOTE | 2019-01-04 02:00 | NUR ---
IV BEEPING. PT STANDING IN ROOM. STATES, "I THOUGHT IT WAS MORNING AND TIME TO GET UP." EXPLAINED TO PT WHAT TIME IT WAS. SHE STATES SHE WILL GO BACK TO BED. NO DISTRESS. CL IN REACH.
--- NOTE | 2019-01-04 05:00 | NUR ---
REQUESTS PAIN MED. MEDICATED WITH DILAUDID FOR C/O PAIN IN LT HIP, KNEE, BACK, ABD. MEDICATED WITH ZOFRAN ALSO. CL IN REACH. LAB HERE TO DRAW BLOOD.
[2019-01-04 05:16] VITALS: BP 120/60
--- NOTE | 2019-01-04 06:03 | NUR ---
LYING ON RT SIDE IN BED WITH EYES CLOSED. RESP EVEN AND NONLABORED. NO DISTRESS. CL IN REACH.
[2019-01-04 07:04] LABS: BASOPHILS 0.2 % (0-2); EOSINOPHILS 3.6 % (0-7); HEMOGLOBIN 9.8 g/dL (12-16); IMMATURE GRANULOCYTES 0.4 % (0-5); MCH 28.7 pg (26.0-34.0); MCHC 32.7 g/dL (31.0-37.0); MEAN PLATELET VOLUME 9.3 fL (7.4-10.4); MONOCYTES 9.9 % (2-11); NEUTROPHILS 65.9 % (40-80); RBC 3.42 10x6/uL (4.00-5.40); RDW 15.3 % (11.5-14.5)
[2019-01-04 07:05] LABS: MCV 87.7 fL (80.0-100.0); PLATELET COUNT 288 10x3/uL (130-400); WBC 8.3 10x3/uL (4.8-10.8)
[2019-01-04 07:21] LABS: ALBUMIN 2.9 g/dL (3.4-5.0); ALKALINE PHOSPHATASE 63 U/L (46-116); ALT (SGPT) 32 U/L (10-68); BILIRUBIN - TOTAL 0.38 mg/dL (0.2-1.3); CALC OSMOLALITY 273 mosm/kg (275-300); CALCIUM 8.6 mg/dL (8.5-10.1); CARBON DIOXIDE 26.4 mmol/L (21.0-32.0); CHLORIDE - SERUM 102 mmol/L (98-107); CREATININE - SERUM 0.6 mg/dL (0.6-1.3); GLUCOSE 82 mg/dL (74-106); POTASSIUM - SERUM 3.8 mmol/L (3.5-5.1); PROTEIN - SERUM 5.8 g/dL (6.4-8.2); SODIUM 138 mmol/L (136-145); UREA NITROGEN 9 mg/dL (7-18); eGFR NON AFRICAN AMERICAN > 90 mL/min (90-120)
--- NOTE | 2019-01-04 08:12 | NUR ---
PT RESTING IN BED WITH EYES CLOSED. AROUSED BY VERBAL STIMULI. DENIES ANY NEEDS. NO S/S OF ACUTE DISTRESS. CL IN PLACE.
[2019-01-04 08:16] VITALS: BP 113/51
--- NOTE | 2019-01-04 11:38 | NUR ---
SPOKE WITH PT ABOUT VILLAGOMEZ BEING X3 DAYS AND THAT DR GILL ORDERED A HEAD CT. IV SWOLLEN AND PAINFUL TO L HAND. DC WITH TIP INTACT. 22G SITED TO L FA. FLUSHED WELL. NO REDDNESS OR SWELLING NOTED. PLESANT. COMPLIANT. NO S/S OF ACUTE DISTRESS. CL IN PLACE.
--- NOTE | 2019-01-04 13:08 | NUR ---
REPORTED R ARM RED, SWOLLEN, AND PAINFUL. SPOKE WITH KAY WHO ORDERED A DOPPLER TO RUE. NO S/S OF ACUTE DISTRESS. CL IN PLACE.
[2019-01-04 16:41] VITALS: BP 128/71
[2019-01-04 17:44] LABS: APPEARANCE CLOUDY (CLEAR); COLOR YELLOW (YELLOW); GLUCOSE NEGATIVE (NEGATIVE); KETONE LARGE mg/dL (NEGATIVE); NITRITE NEGATIVE (NEGATIVE); PROTEIN 2+ mg/dL (NEGATIVE); SPECIFIC GRAVITY 1.015 (1.005-1.020)
[2019-01-04 17:45] LABS: BILIRUBIN NEGATIVE (NEGATIVE); UROBILINOGEN NORMAL (NORMAL)
[2019-01-04 17:47] LABS: BACTERIA MODERATE /hpf (NONE SEEN); EPITHELIAL CELLS 0-5 /hpf (0-5); RED CELLS - URINE 0-5 /hpf (0-5); WHITE CELLS - URINE 25-50 /hpf (0-5)
--- NOTE | 2019-01-04 18:20 | NUR ---
PT RESTING IN BED. UA COLLECTED PER PT REQUEST. CONFUSED. "I PEED ON MYSELF AND DONT KNOW WHY." PT CLEANED SELF. BROUGHT BAD FOR DIRTY CLOTHES. BROUGHT LEMON SWABS PER REQUEST. NO S/S OF ACUTE DISTRESS. CL IN PLACE.
--- NOTE | 2019-01-04 19:50 | NUR ---
LYING IN BED WATCHING TV. C/O PAIN IN RT ARM, ABD AND H/A RATING 10. MEDICATED WITH DILAUDID ORDERED FOR PAIN. RESP EVEN AND NONLABORED. MILD ANXIETY NOTED BUT MUCH IMPROVED FROM LAST NIGHT. COOPERATIVE WITH STAFF. PROCAL @ 100 ML/HR INFUSING IN LT FOREARM WITH NS @ 75 MLHR. AMBULATORY. RT ARM SLIGHTLY RED. SR ELEVATED X2. CL IN REACH. ALERT AND ORIENTED X4.
[2019-01-04 20:00] VITALS: BP 107/74
--- NOTE | 2019-01-05 02:33 | NUR ---
HAS BEEN ASLEEP MOST OF NIGHT SO FAR. NO DISTRESS. CL IN REACH.
[2019-01-05 04:00] VITALS: BP 143/69
[2019-01-05 06:14] LABS: BASOPHILS 0.3 % (0-2); EOSINOPHILS 3.1 % (0-7); HEMATOCRIT 29.4 % (36.0-48.0); HEMOGLOBIN 9.7 g/dL (12-16); IMMATURE GRANULOCYTES 0.1 % (0-5); MCH 28.9 pg (26.0-34.0); MCV 87.5 fL (80.0-100.0); MEAN PLATELET VOLUME 9.1 fL (7.4-10.4); MONOCYTES 9.9 % (2-11); NEUTROPHILS 62.6 % (40-80); PLATELET COUNT 277 10x3/uL (130-400); RBC 3.36 10x6/uL (4.00-5.40); RDW 14.8 % (11.5-14.5); WBC 6.8 10x3/uL (4.8-10.8)
[2019-01-05 06:52] LABS: ALBUMIN 2.6 g/dL (3.4-5.0); ALKALINE PHOSPHATASE 59 U/L (46-116); BILIRUBIN - TOTAL 0.32 mg/dL (0.2-1.3); CALC OSMOLALITY 276 mosm/kg (275-300); CALCIUM 8.5 mg/dL (8.5-10.1); CARBON DIOXIDE 27.6 mmol/L (21.0-32.0); CHLORIDE - SERUM 105 mmol/L (98-107); CREATININE - SERUM 0.6 mg/dL (0.6-1.3); GLUCOSE 92 mg/dL (74-106); POTASSIUM - SERUM 3.6 mmol/L (3.5-5.1); PROTEIN - SERUM 5.8 g/dL (6.4-8.2); SODIUM 139 mmol/L (136-145); UREA NITROGEN 9 mg/dL (7-18); eGFR NON AFRICAN AMERICAN > 90 mL/min (90-120)
[2019-01-05 06:55] LABS: ALT (SGPT) 21 U/L (10-68)
[2019-01-05 08:20] VITALS: BP 163/79
--- NOTE | 2019-01-05 09:00 | NUR ---
PATIENT REQUESTING A BREAKFAST TRAY NOW THAT HER UPPER GI TEST IS THROUGH. I TOLD HER THAT IT WOULD STILL BE UP TO THE DR TO ORDER. CL IN REACH. FAMILY IN ROOM. TOM
[2019-01-05 12:39] VITALS: BP 146/60
--- NOTE | 2019-01-05 14:43 | MORECARE ---
CASE MANAGEMENT DISCHARGE SUMMARY PATIENT: YU KUO UNIT: [id number] ADM DATE: 01/01/19 AGE: 58 : 58 SEX: F ROOM/BED: D.2212 AUTHOR: GIDEON MOSCOSO PHYSICIAN: REFERRING PHYSICIAN: MARIA R GILL MD DATE OF SERVICE: 01/05/19 Discharge Plan Patient Name: YU KUO Facility: [facility]:[place] : 1960 Planned Disposition: Home Anticipated Discharge Date: Discharge Date: Expected LOS: Initial Reviewer: [email or web address] Initial Review Date: 01/01/2019 Generated: 01/05/19 3:43 pm DCPIA - Discharge Planning Initial Assessment Updated by [email or web address]: Irene Garcia on 01/05/19 2:39 pm * Is the patient Alert and Oriented? Yes * How many steps to enter\exit or inside your home? * PCP CHAR * Pharmacy [facility] [address] * Preadmission Environment Home with Family * ADLs Independent * Equipment None * List name and contact numbers for known caregivers / representatives who currently or will assist patient after discharge: ELAINA CHERY (SISTER IN LAW) FANTASMA (SON) [phone] * Verbal permission to speak to the caregivers and representatives has been obtained from the patient. Yes * Community resources currently utilized None * Additional services required to return to the preadmission environment? Yes * Can the patient safely return to the preadmission environment? Yes * Has this patient been hospitalized within the prior 30 days at any hospital? No Patient Name: YU KUO Page [id number] at 1443 All edits/amendments must be made on the electronic document DICTATION DATE: 01/05/191441 IMMIGRATION JUDGE: CARMINA 01/05/19 144 RPT#: [id number] DC DATE: STATUS: ADM IN [facility] [address] [place] [address] END OF REPORT
--- NOTE | 2019-01-05 16:47 | CN ---
PATIENT NAME:YU KUO MEDICAL RECORD: [id number] : 58 LOCATION:D.MS Elias2 ADMIT DATE: 01/01/19 ACCOUNT: [id number] CONSULTING PHYSICIAN: ALFREDITO KILLIAN MD REFERRING PHYSICIAN: MARIA R GILL MD DATE OF CONSULTATION: 01/04/2019 PSYCHIATRIC CONSULTATION IDENTIFYING DATA: The patient is 58 years old and she is admitted to the hospital on a voluntary basis. CHIEF COMPLAINT: None. HISTORY OF PRESENT ILLNESS: The patient has numerous and severe medical problems. She was severely anemic and hypokalemic when she was admitted to the hospital. In addition to this, she has a history of lung cancer, which is currently in remission. She has peripheral neuropathy and hypertension. She has had 2 TIAs and she has a ventral hernia. She also has rheumatoid arthritis and is hypothyroid. Apparently, there was some confusion that was noted, but not described in detail at least in the notes that I reviewed. There was also some concern about possible medication noncompliance, but I am not sure on what that was based. 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 She has a history of stable social and occupational functioning and has performed professional duties in a competent and professional manner and I would have no expectation that that has changed. The patient is completely euthymic, appropriate, cooperative, and shows no evidence of any confusion at all. She is fully oriented, conversant, can describe in detail what is happening, and answers clearly and concisely the questions that I pose to her. Given the fact that she has improved somewhat medically since admission, perhaps there was a delirium present that has resolved, but certainly there is no evidence of any underlying serious psychiatric condition. The patient does have some conflict with her children and that is clearly stressful to her. Primary conflict is that somehow they are in denial about the severity of her ongoing medical problems. The conflict is of course significant, but not something that would appear to be grinding her down into a condition that is in need of psychiatric care. Of course, she has no psychotic symptoms and no thoughts of harming herself or others in addition to the description I have given above. ASSESSMENT: Adjustment disorder with mixed emotional features. PLAN: The patient is psychiatrically healthy and well adjusted. There is no need for outpatient psychiatric care and naturally no concern about safety. She is competent to make reasonable informed consent decisions about herself and her state, and hopefully in a way that does not have to involve any outside assistance, she can resolve the conflict she is having with her children. No medications are recommended. No outpatient followup is needed. TRANSINT:[id number] Voice Confirmation ID: [id number] DOCUMENT ID: [id number] CONSULT REPORT [id number] YU KUO PETER MD at 1647 CC: [id number] DICTATION DATE: 01/04/19 1157 RADIO DIVISION LIEUTENANT: 01/04/19 1511 ADM IN [place] [id number] [place] [address]
[2019-01-05 17:15] VITALS: BP 160/74
[2019-01-05 20:00] VITALS: BP 108/60
--- NOTE | 2019-01-05 20:00 | NUR ---
PT SITTING UP IN BED WITHOUT DISTRESS. ALERT AND ORIENTED. STATES PAIN IN ABD 10/10. NINO HEATING PAD APPLIED AND ELEVATED RIGHT UPPER ARM. IV LEFT FA RED AND SWOLLEN. DC'D WITH CATHETER INTACT. RESITED 20G RIGHT WRIST X1 ATTEMPT. INFUSING PROCAL AT @ 100. GAVE DILAUDID AND ZOFRAN ORDERED. APPLIED HEAT PACK TO LEFT FA. DENIES OTHER NEEDS. CL IN REACH, WILL CTM
[2019-01-06] VITALS: BP 109/56
--- NOTE | 2019-01-06 00:10 | NUR ---
PT STATES PAIN 10/10 IN ABD AND COMPLAINTS OF UPSET STOMACH. GAVE DILAUDID AND ZOFRAN ORDERED. DENIES OTHER NEEDS
[2019-01-06 04:00] VITALS: BP 126/67
--- NOTE | 2019-01-06 05:40 | NUR ---
PT SITTING UP IN BED WITHOUT DISTRESS. ASSISTED PT TO AND FROM BATHROOM TO NOT GET TANGLED IN IV TUBING. REQUESTED AND GIVEN WARM BLANKET. PAIN 10/10 IN ABD. GAVE DILAUDID AND ZOFRAN. CL IN REACH, WILL CTM
[2019-01-06 06:55] LABS: ALBUMIN 2.4 g/dL (3.4-5.0); ALKALINE PHOSPHATASE 56 U/L (46-116); ALT (SGPT) 22 U/L (10-68); BILIRUBIN - TOTAL 0.16 mg/dL (0.2-1.3); CALC OSMOLALITY 270 mosm/kg (275-300); CALCIUM 8.9 mg/dL (8.5-10.1); CARBON DIOXIDE 25.6 mmol/L (21.0-32.0); CHLORIDE - SERUM 104 mmol/L (98-107); CREATININE - SERUM 0.5 mg/dL (0.6-1.3); GLUCOSE 91 mg/dL (74-106); PROTEIN - SERUM 5.1 g/dL (6.4-8.2); SODIUM 136 mmol/L (136-145); UREA NITROGEN 11 mg/dL (7-18); eGFR NON AFRICAN AMERICAN > 90 mL/min (90-120)
[2019-01-06 06:57] LABS: POTASSIUM - SERUM 5.2 mmol/L (3.5-5.1)
[2019-01-06 06:59] LABS: BASOPHILS 0.2 % (0-2); EOSINOPHILS 4.4 % (0-7); HEMATOCRIT 29.1 % (36.0-48.0); LYMPHOCYTES 29.4 % (15-50); MCH 28.3 pg (26.0-34.0); MCHC 30.9 g/dL (31.0-37.0); MEAN PLATELET VOLUME 9.6 fL (7.4-10.4); MONOCYTES 9.9 % (2-11); NEUTROPHILS 56.1 % (40-80); PLATELET COUNT 261 10x3/uL (130-400); RBC 3.18 10x6/uL (4.00-5.40); WBC 5.2 10x3/uL (4.8-10.8)
[2019-01-06 07:29] LABS: MCV 91.5 fL (80.0-100.0)
--- NOTE | 2019-01-06 07:55 | NUR ---
ALERT AND ORIENTED. LUNGS CLEAR BILATERALLY IN ALL MARLOW. HEART SOUNDS S1 AND S2 HEARD IN ALL MARLOW. BOWEL SOUNDS ACTIVE X 4. STRIKER HEATING PAD IN PLACE TO RIGHT ARM. SKIN INTACT WITHOUT REDNESS. DENIES PAIN. DENIES NEEDS. BED LOW. REFUSES FALL PRECAUTIONS. CALL WELSH AND PERSONAL ITEMS IN REACH. WILL CONTINUE TO MONITOR.
[2019-01-06 08:48] VITALS: BP 129/69
--- NOTE | 2019-01-06 09:51 | NUR ---
REQUESTED AND GIVEN EGG CRATE MATTRESS FOR BED.
--- NOTE | 2019-01-06 10:09 | NUR ---
EDUCATION PROVIDED ON NEED TO BE NPO FOR ABD ULTRASOUND. STATES HAS NOT HAD ANYTHING TO EAT OR DRINK SINCE YESTERDAY AND WILL STAY NPO.
[2019-01-06 13:47] VITALS: BP 160/69
--- NOTE | 2019-01-06 16:26 | NUR ---
RESTING IN BED. DENIES NEEDS. WILL CONTINUE TO MONITOR.
[2019-01-06 16:41] VITALS: BP 149/69
--- NOTE | 2019-01-06 19:30 | NUR ---
PT SITTING UP IN BED WITHOUT DISTRESS. ALERT AND ORIENTED. IV LEFT WRIST INFUSING PROCAL @ 75. STATES PAIN 03/05. WILL GIVE DILAUDID ORDERED. DENIES OTHER NEEDS AT THIS TIME. CL IN REACH, WILL CTM
--- NOTE | 2019-01-06 20:40 | NUR ---
STATES PAIN 10/10 IN ABD, GAVE DILAUDID ORDERED. REMINDED PT SHE IS NPO AFTER MN, VERBALIZES UNDERSTANDING. CL IN REACH, WILL CTM
[2019-01-06 22:24] VITALS: BP 162/57
--- NOTE | 2019-01-07 | NUR ---
PT IV INFILTRATED, DC'D WITH CATHETER TIP INTACT. 22G IV RESITED TO LEFT FA X1 ATTEMPT. INFUSING PROCAL @ 75. GAVE DILAUDID ORDERED FOR PAIN 03/05
[2019-01-07 03:48] VITALS: BP 137/64
--- NOTE | 2019-01-07 05:30 | NUR ---
PT SITTING UP IN BED WITHOUT DISTRESS, ASSISTED UP TO BATHROOM AND BACK TO BED. RIGHT UPPER ARM ELEVATED WITH NINO HEATING PAD APPLIED. DENIES OTHER NEEDS. CL IN REACH, WILL CTM
[2019-01-07 06:49] VITALS: BP 148/72
[2019-01-07 07:44] LABS: ALBUMIN 2.6 g/dL (3.4-5.0); ALKALINE PHOSPHATASE 62 U/L (46-116); ALT (SGPT) 21 U/L (10-68); BILIRUBIN - TOTAL 0.22 mg/dL (0.2-1.3); CALC OSMOLALITY 282 mosm/kg (275-300); CALCIUM 9.2 mg/dL (8.5-10.1); CARBON DIOXIDE 27.6 mmol/L (21.0-32.0); CHLORIDE - SERUM 108 mmol/L (98-107); CREATININE - SERUM 0.6 mg/dL (0.6-1.3); GLUCOSE 83 mg/dL (74-106); POTASSIUM - SERUM 4.7 mmol/L (3.5-5.1); PROTEIN - SERUM 5.4 g/dL (6.4-8.2); SODIUM 143 mmol/L (136-145); UREA NITROGEN 9 mg/dL (7-18); eGFR NON AFRICAN AMERICAN > 90 mL/min (90-120)
--- NOTE | 2019-01-07 08:55 | NUR ---
FOLLOWING BEDSIDE REPORT PATIENT WAS TAKEN BY WHEELCHAIR FOR PIPIDA SCAN.
[2019-01-07 10:09] LABS: BASOPHILS 0.5 % (0-2); EOSINOPHILS 6.2 % (0-7); HEMATOCRIT 32.5 % (36.0-48.0); HEMOGLOBIN 10.3 g/dL (12-16); IMMATURE GRANULOCYTES 0.6 % (0-5); LYMPHOCYTES 23.2 % (15-50); MCH 28.4 pg (26.0-34.0); MCHC 31.7 g/dL (31.0-37.0); MEAN PLATELET VOLUME 9.5 fL (7.4-10.4); MONOCYTES 8.3 % (2-11); NEUTROPHILS 61.2 % (40-80); RBC 3.63 10x6/uL (4.00-5.40); RDW 14.8 % (11.5-14.5); WBC 6.3 10x3/uL (4.8-10.8)
[2019-01-07 10:13] LABS: MCV 89.5 fL (80.0-100.0); PLATELET COUNT 136 10x3/uL (130-400)
[2019-01-07 13:11] VITALS: BP 127/70
--- NOTE | 2019-01-07 13:22 | NUR ---
Nutrition follow-up: Pt sitting in bed eating full liquid diet. Pt reports she is tolerating Full liquids but is getting very tired of them. Pt scheduled for G-J-tube placement 01/08. Labs reviewed Wt: 190# Will provide recommendations when consulted. RDN following.
[2019-01-07 16:24] VITALS: BP 143/62
--- NOTE | 2019-01-07 19:45 | NUR ---
PT SITTING UP IN BED WITHOUT DISTRESS, ALERT AND ORIENTED. LEFT UPPER ARM ML INFUSING PROCAL @ 75. PT REMINDED SHE IS NPO AFTER MN, VERBALIZED UNDERSTANDING. RIGHT UPPER ARM ELEVATED WITH NINO HEATING PAD APPLIED TO ARM. DENIES OTHER NEEDS AT THIS TIME. CL IN REACH, WILL CTM
[2019-01-07 21:49] VITALS: BP 155/63
[2019-01-08 02:49] VITALS: BP 156/68
[2019-01-08 05:52] LABS: BASOPHILS 0.5 % (0-2); EOSINOPHILS 5.6 % (0-7); HEMATOCRIT 30.7 % (36.0-48.0); HEMOGLOBIN 9.7 g/dL (12-16); IMMATURE GRANULOCYTES 0.3 % (0-5); LYMPHOCYTES 26.4 % (15-50); MCH 28.2 pg (26.0-34.0); MCHC 31.6 g/dL (31.0-37.0); MCV 89.2 fL (80.0-100.0); MEAN PLATELET VOLUME 9.5 fL (7.4-10.4); MONOCYTES 9.7 % (2-11); NEUTROPHILS 57.5 % (40-80); RBC 3.44 10x6/uL (4.00-5.40); RDW 14.8 % (11.5-14.5); WBC 6.1 10x3/uL (4.8-10.8)
[2019-01-08 06:06] LABS: CALC OSMOLALITY 281 mosm/kg (275-300); CALCIUM 10.2 mg/dL (8.5-10.1); CARBON DIOXIDE 30.8 mmol/L (21.0-32.0); CHLORIDE - SERUM 106 mmol/L (98-107); CREATININE - SERUM 0.7 mg/dL (0.6-1.3); GLUCOSE 96 mg/dL (74-106); SODIUM 142 mmol/L (136-145); UREA NITROGEN 10 mg/dL (7-18); eGFR NON AFRICAN AMERICAN > 90 mL/min (90-120)
[2019-01-08 06:24] LABS: PLATELET COUNT 294 10x3/uL (130-400)
[2019-01-08 06:29] VITALS: BP 158/66
--- NOTE | 2019-01-08 07:35 | NUR ---
PATIENT ADMITTED FOR SEVERE ANEMIA. ALSO HAS CHRONIC PAIN. NPO FOR EGD AND LAP AURE LATER TODAY
--- NOTE | 2019-01-08 09:30 | NUR ---
PATIENT TAKEN TO OR FOR PROCEDURE
[2019-01-08 10:26] VITALS: BP 135/81
[2019-01-08 12:26] VITALS: BP 169/78
--- NOTE | 2019-01-08 12:30 | NUR ---
PATIENT RECIEVED FROM RECOVERY WITH VITAL SIGNS STABLE. LAP AURE, DILATION, AND EGD.
--- NOTE | 2019-01-08 19:20 | NUR ---
LYING IN BED. ALERT AND ORIENTED X4. RESP EVEN AND NONLABORED. SOB AT TIMES WHEN ANXIOUS. O2 @ 2L/NC ONLY WORN PRN. RATES PAIN IN ABD 9. LAP SITES X4 NOTED TO ABD WITH STERISTRIPS COVERED WITH LARGE BANDAIDS. STATES SHE IS PASSING GAS. RUE IS PINK AND SWOLLEN. PROCAL @ 75 ML/HR INFUSING IN LT UPPER ARM MIDLINE WITHOUT DIFF. SR ELEVATED X3. CL IN REACH.
--- NOTE | 2019-01-08 20:13 | NUR ---
MEDICATED WITH DILAUDID FOR C/O PAIN IN ABD. CL IN REACH.
[2019-01-08 20:59] VITALS: BP 119/83
--- NOTE | 2019-01-09 00:18 | NUR ---
MEDICATED WITH DILAUDID FOR C/O PAIN IN ABD. ASSISTED UP TO BR TO VOID. STILL PASSING GAS SHE REPORTS.
[2019-01-09 01:02] VITALS: BP 159/67
--- NOTE | 2019-01-09 04:20 | NUR ---
REQUESTED MUSCLE RELAXER. MEDICATED WITH FLEXERIL FOR C/O NECK PAIN. KPAD IN USE ON RUE. CL IN REACH.
[2019-01-09 04:55] VITALS: BP 170/87
[2019-01-09 06:16] LABS: BASOPHILS 0.3 % (0-2); EOSINOPHILS 3.5 % (0-7); HEMATOCRIT 31.5 % (36.0-48.0); HEMOGLOBIN 10.2 g/dL (12-16); IMMATURE GRANULOCYTES 0.1 % (0-5); LYMPHOCYTES 21.8 % (15-50); MCH 28.9 pg (26.0-34.0); MCHC 32.4 g/dL (31.0-37.0); MCV 89.2 fL (80.0-100.0); MEAN PLATELET VOLUME 9.4 fL (7.4-10.4); MONOCYTES 9.3 % (2-11); PLATELET COUNT 299 10x3/uL (130-400); RBC 3.53 10x6/uL (4.00-5.40); RDW 14.7 % (11.5-14.5); WBC 7.2 10x3/uL (4.8-10.8)
[2019-01-09 07:27] LABS: CALC OSMOLALITY 281 mosm/kg (275-300); CALCIUM 9.7 mg/dL (8.5-10.1); CHLORIDE - SERUM 107 mmol/L (98-107); CREATININE - SERUM 0.7 mg/dL (0.6-1.3); GLUCOSE 96 mg/dL (74-106); POTASSIUM - SERUM 4.1 mmol/L (3.5-5.1); SODIUM 142 mmol/L (136-145); UREA NITROGEN 10 mg/dL (7-18); eGFR NON AFRICAN AMERICAN > 90 mL/min (90-120)
--- NOTE | 2019-01-09 07:41 | NUR ---
ALERT AND ORIENTED. LUNGS CLEAR BILATERALLY IN ALL MARLOW. HEART SOUNDS S1 AND S2 HEARD IN ALL MARLOW. BOWEL SOUNDS ACTIVE X 4. LAP SITES X 4 TO ABD C/D/I. SKIN OTHERWISE IN TACT WITHOUT REDNESS. MIDLINE TO NIK PATENT WITHOUT REDNESS. BED LOW. CALL WELSH AND PERSONAL ITEMS INREACH. WILL CONTINUE TO MONITOR.
[2019-01-09 08:07] VITALS: BP 169/80
--- NOTE | 2019-01-09 09:30 | NUR ---
PATIENT SLEEPING. WILL CONTINUE TO MONITOR.
--- NOTE | 2019-01-09 12:49 | NUR ---
PATIENT SLEEPING. WILL CONTINUE TO MONITOR.
[2019-01-09 13:13] VITALS: BP 166/83
--- NOTE | 2019-01-09 14:30 | NUR ---
RESTING IN BED. DENIES NEEDS. WILL CONTINUE TO MONITOR.
[2019-01-09 16:21] VITALS: BP 151/64
--- NOTE | 2019-01-09 18:14 | NUR ---
RESTING IN BED. DENIES NEEDS. BED LOW. CALL WELSH AND PERSONAL ITEMS IN REACH. WILL CONTINUE TO MONITOR.
--- NOTE | 2019-01-09 19:15 | NUR ---
RECEIVED CARE FROM DAY NURSE. LYING IN BED WATCHING TV. NO NEEDS VOICED AT THIS TIME. CALL LIGHT AT SIDE. IV INFUSING PER ORDER TO PATENT LEFT MIDLINE.
--- NOTE | 2019-01-09 20:15 | NUR ---
PER SHIFT REPORT PT DIET IS ADVANCE TOLERATED. PT REPORTS THE DOCTOR WANTED HER TO STARTING MORE SOLID FOOD. SANDWICH TRAY GIVEN AND EATEN AT THIS TIME EXCEPT FOR ORANGE.
[2019-01-09 21:25] VITALS: BP 165/66
[2019-01-10 01:24] VITALS: BP 144/60
[2019-01-10 05:44] VITALS: BP 158/72
[2019-01-10 06:36] LABS: BASOPHILS 0.5 % (0-2); EOSINOPHILS 4.7 % (0-7); HEMATOCRIT 31.7 % (36.0-48.0); HEMOGLOBIN 9.9 g/dL (12-16); IMMATURE GRANULOCYTES 0.2 % (0-5); LYMPHOCYTES 24.7 % (15-50); MCHC 31.2 g/dL (31.0-37.0); MCV 89.5 fL (80.0-100.0); MEAN PLATELET VOLUME 9.4 fL (7.4-10.4); MONOCYTES 12.3 % (2-11); NEUTROPHILS 57.6 % (40-80); PLATELET COUNT 283 10x3/uL (130-400); RBC 3.54 10x6/uL (4.00-5.40); WBC 6.6 10x3/uL (4.8-10.8)
[2019-01-10 06:58] LABS: CALC OSMOLALITY 277 mosm/kg (275-300); CALCIUM 9.6 mg/dL (8.5-10.1); CARBON DIOXIDE 29.7 mmol/L (21.0-32.0); CHLORIDE - SERUM 105 mmol/L (98-107); CREATININE - SERUM 0.8 mg/dL (0.6-1.3); GLUCOSE 101 mg/dL (74-106); POTASSIUM - SERUM 3.8 mmol/L (3.5-5.1); SODIUM 139 mmol/L (136-145); UREA NITROGEN 13 mg/dL (7-18); eGFR NON AFRICAN AMERICAN 78 mL/min (90-120)
[2019-01-10 09:04] VITALS: BP 169/84
[2019-01-10] MEDS ORDERED: PROTONIX40 MG PO (09:37)
--- NOTE | 2019-01-10 09:59 | NUR ---
PT ALERT X 4. BREATH SOUNDS CLEAR BILAT. MIDLINE TO LEFT UPPER ARM, PATENT, DRESSING CDI. LAP SITES TO ABDOMEN, DRESSINGS CDI. PT REPORTING PAIN OF 8/10, GIVEN FLEXARIL PER PT REQUEST, WILL MONITOR. BED LOW, CALL LIGHT IN REACH. NO OTHER NEEDS AT THIS TIME.
--- NOTE | 2019-01-10 11:00 | NUR ---
DISCHARGE PAPERWORK SIGNED, ALL QUESTIONS ANSWERED. MIDLINE TO LEFT UPPER ARM, DC'D. PT ESCORTED OUT BY WHEELCHAIR.
--- NOTE | 2019-01-13 13:17 | MORECARE ---
CASE MANAGEMENT DISCHARGE SUMMARY PATIENT: YU KUO UNIT: [id number] ADM DATE: 01/01/19 AGE: 58 : 58 SEX: F ROOM/BED: D.2212 AUTHOR: GIDEON MOSCOSO PHYSICIAN: REFERRING PHYSICIAN: MARIA R GILL MD DATE OF SERVICE: 01/13/19 Discharge Plan Patient Name: YU KUO Facility: [facility]:[place] : 1960 Planned Disposition: Home Anticipated Discharge Date: Discharge Date: 01/10/2019 Expected LOS: Initial Reviewer: [email or web address] Initial Review Date: 01/01/2019 Generated: 01/13/19 2:17 pm DCP- Discharge Planning Updated by [email or web address]: Irene Garcia on 01/05/19 1:[address] Patient Name: YU KUO Admission Status: ER Accout number: [id number] Admission Date: 01-01-2019 : 1960 Admission Diagnosis:HYPOTHYROIDISM, UNSPECIFIED Attending: MARIA R GILL Current LOS: 4 Anticipated DC Date: Planned Disposition: Home Primary [place]: [place] [employer] Discharge Planning Comments: CM met with patient to complete initial dc planning assessment. CM educated patient on the CM role and verbal consent given by patient to complete assessment. Patient lives at home where she is independent with her care. At discharge patient plans to stay with her brother and sister in law and feels this is a safe discharge. CM discussed availability of home health, rehab services, and medical equipment. She will wait and see what DME or HH she might need after her surgery. Patient denied known discharge needs at this time. CM will continue to follow and will assist as needed with dc plans/needs. Tax Examining Technician: Irene Garcia DCPIA - Discharge Planning Initial Assessment Updated by [email or web address]: Irene Garcia on 01/05/19 2:39 pm * Is the patient Alert and Oriented? Yes * How many steps to enter\exit or inside your home? * PCP [facility] * [facility] [address] * Preadmission Environment Home with Family * ADLs Independent * Equipment None * List name and contact numbers for known caregivers / representatives who currently or will assist patient after discharge: ELAINA CHERY (SISTER IN LAW) FANTASMA (SON) [phone] * Verbal permission to speak to the caregivers and representatives has been obtained from the patient. Yes * Community resources currently utilized None * Additional services required to return to the preadmission environment? Yes * Can the patient safely return to the preadmission environment? Yes * Has this patient been hospitalized within the prior 30 days at any hospital? No Last DP export: 01/05/19 1:43 p Patient Name: YU KUO Page [id number] at 1317 All edits/amendments must be made on the electronic document DICTATION DATE: 01/13/191316 SLOT ROUTER: CARMINA 01/13/191316 RPT#: [id number] DC DATE:01/10/19 STATUS: DIS IN [facility] [address] [place] [address] END OF REPORT
--- NOTE | 2019-01-22 07:19 | OP ---
PATIENT NAME: YU KUO MEDICAL RECORD: [id number] :58 LOCATION:D.MS Head2212 ADMISSION DATE:01/01/19 SURGEON: AMANDEEP OSMAN MD DATE OF OPERATION: 01/08/2019 PREOPERATIVE DIAGNOSES: 1. Peptic ulcer disease. 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 3. Biliary dyskinesia. POSTOPERATIVE DIAGNOSES: 1. Peptic ulcer disease. 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 3. Biliary dyskinesia. PROCEDURES: 1. EGD with biopsy and pyloric dilatation. 2. Laparoscopic cholecystectomy. SURGEON: Amandeep Osman MD REPORT OF PROCEDURE: An Olympus endoscope was advanced through the mouth and esophagus. As we entered the stomach, there was noted to be some fluid and a single piece of food content that was left in the stomach. We were able to pass this and we could see the pylorus of the stomach. There was some inflammation noted around and approximately 1 cm nonbleeding ulcer present on the lesser curvature of the stomach in the prepyloric location. As we passed through this area of stenosis, we were able to pass through into the duodenum. I was eventually able to get to the third portion of the duodenum and can see that the duodenum itself showed some inflammatory changes, but otherwise appeared to be normal. As we pulled the scope back, I could visualize the ulcer a little better. I went ahead and took some biopsies of the edge of the ulcer and sent these off for permanent and also to check for H. pylori, which the patient had had previously. We passed through the area of stenosis into the pyloric bulb and inserted a pneumatic balloon and performed a dilation of the pylorus up to 60. This was done without complication and with only some minimal bleeding noted at the site. At this point, we inspected the remainder of the stomach and did not see any evidence of any other ulcerations or masses. At this point, the insufflation and scope were removed. We then prepped and draped the abdomen in sterile fashion. A skin incision was made on the superior aspect of the umbilicus, 0 Vicryls were placed in the fascia bilaterally and the fascia was incised with 15-blade. I then bluntly entered the peritoneal cavity and placed a 12-mm Paula port. Under direct visualization, a 5-mm trocar was placed in the epigastrium and two more 5-mm trocars were placed in the right subcostal region. The gallbladder was elevated and there were some chronic inflammatory changes present, but no signs of acute inflammation. The cystic artery and cystic duct were dissected free. The patient had 2 branches of the cystic artery, so all 3 of these structures were clipped proximally and distally and ligated in standard fashion. The gallbladder was then taken off the liver bed using electrocautery and placed into the right upper quadrant. Any bleeding from the liver bed was then treated with electrocautery. The ports and insufflation were then removed and the gallbladder was taken out through the umbilicus. The umbilical fascia was closed with interrupted 0 Vicryls times 3. The wounds were then irrigated out with normal saline, infused with 10 mL of 0.25% Marcaine with epinephrine. The skin incisions were all closed with OPERATIVE REPORT [id number] PALKOYU CHO L subcutaneous 5-0 Monocryl and dressed appropriately. Prior to closure, the patient's duodenum was inspected and there was no sign of any injury to the structures and no signs of any inflammatory changes on the periphery of the duodenum. COMPLICATIONS: None. CONDITION: Stable. ANESTHESIA: General endotracheal and local. BLOOD LOSS: 30 mL. TRANSINT:[id number] Voice Confirmation ID: [id number] DOCUMENT ID: [id number] AMANDEEP OSMAN MD at 0719 CC: ANGELINE FELIPE DO [id number] DICTATION DATE: 01/08/19 1116 REEL REPAIRER: 01/08/19 1226 DIS IN 01/10/19 [address] [place] [address]
== END 2019-01-10 11:02 | disposition home or self-care (01) | DRG 357 ==
LOC: D.ER 09:27 → D.ICU 13:50 → D.MS 13:50
PROVIDERS: Family Medicine; Internal Medicine Gastroenterology; Internal Medicine Nephrology; Surgery; ADMIT Emergency Medicine; ATTEND Emergency Medicine
PROC: 0DJ08ZZ Inspection of Upper Intestinal Tract, Via Natural or Artificial Opening Endoscopic (ICD-10-PCS; principal; 2019-01-01 16:23)
PROC: 0D778ZZ Dilation of Stomach, Pylorus, Via Natural or Artificial Opening Endoscopic (ICD-10-PCS; 2019-01-08)
PROC: 0DB68ZX Excision of Stomach, Via Natural or Artificial Opening Endoscopic, Diagnostic (ICD-10-PCS; 2019-01-08)
PROC: 0FT44ZZ Resection of Gallbladder, Percutaneous Endoscopic Approach (ICD-10-PCS; 2019-01-08 10:15)
DX: K22.10 Ulcer of esophagus without bleeding (principal); K31.1 Adult hypertrophic pyloric stenosis; N39.0 Urinary tract infection, site not specified; E03.9 Hypothyroidism, unspecified; D64.9 Anemia, unspecified; E87.6 Hypokalemia; I10 Essential (primary) hypertension; F43.29 Adjustment disorder with other symptoms; I80.8 Phlebitis and thrombophlebitis of other sites; K25.9 Gastric ulcer, unspecified as acute or chronic, without hemorrhage or perforation

== ENCOUNTER → 2019-01-21 10:54 | Outpatient (CLI) | payer MEDICAID ==
[2019-01-02 15:01] VITALS: BMI 29.8
[~2019-01-21 10:54] MED LIST changes: +BISOPROLOL-HCT1 EACH PO; +PROTONIX40 MG PO; +ROPINIROLE HCL2 MG PO; +STRATTERA100 MG PO
== END | disposition home or self-care (01) ==
LOC: D.MRI 01-16 13:30
PROVIDERS: ATTEND Emergency Medicine
DX: M54.6 Pain in thoracic spine (principal)

== ENCOUNTER 2020-07-21 14:23 | Observation (INO) | payer MEDICAID ==
[~2020-07-21] VITALS: Ht 170.2 cm; Wt 86.4 kg
[~2020-07-21 14:23] MED LIST changes: +ARMOUR THYROID90 MG PO; +BAYER CHEWABLE81 MG PO; +METHOCARBAMOL750 MG PO; +PEPCID AC20 MG PO; +PLAVIX75 MG PO
[2020-07-21 14:28] VITALS: Ht 170.2 cm; Wt 86.4 kg
--- NOTE | 2020-07-21 14:55 | NUR ---
URINE SPEC COLLECTED, LABELED AT BS AND SENT TO LAB
--- NOTE | 2020-07-21 15:03 | NUR ---
REPORT TO GREGORIA BUTLER
[2020-07-21 15:17] LABS: BILIRUBIN NEGATIVE (NEGATIVE); KETONE NEGATIVE (NEGATIVE); NITRITE NEGATIVE (NEGATIVE); UROBILINOGEN NORMAL mg/dL (< 2)
[2020-07-21 15:26] LABS: HEMATOCRIT 36.3 % (36.0-48.0); HEMOGLOBIN 11.3 g/dL (12-16); LYMPHOCYTES 31.5 % (15-50); MCH 29.7 pg (26.0-34.0); MCHC 31.1 g/dL (31.0-37.0); MCV 95.3 fL (80.0-100.0); MEAN PLATELET VOLUME 9.5 fL (7.4-10.4); PLATELET COUNT 294 10x3/uL (130-400); RBC 3.81 10x6/uL (4.00-5.40); RDW 13.3 % (11.5-14.5); WBC 5.3 10x3/uL (4.8-10.8)
[2020-07-21 15:36] LABS: APTT 25.6 SECONDS (22.8-39.4); PROTIME 12.2 SECONDS (11.6-15.0)
[2020-07-21 16:11] LABS: CALC OSMOLALITY 283 mosm/kg (275-300); CARBON DIOXIDE 29.8 mmol/L (21.0-32.0); CHLORIDE - SERUM 106 mmol/L (98-107); CREATININE - SERUM 0.9 mg/dL (0.6-1.3); GLUCOSE 93 mg/dL (74-106); POTASSIUM - SERUM 3.9 mmol/L (3.5-5.1); SODIUM 142 mmol/L (136-145); UREA NITROGEN 15 mg/dL (7-18); eGFR NON AFRICAN AMERICAN 68 mL/min (90-120)
--- NOTE | 2020-07-21 16:25 | NUR ---
PT. SLEEPING, RESTING COMFORTABLY
[2020-07-21 16:27] LABS: ALBUMIN 3.9 g/dL (3.4-5.0); ALKALINE PHOSPHATASE 76 U/L (30-120); ALT (SGPT) 33 U/L (10-68); BILIRUBIN - TOTAL 0.21 mg/dL (0.2-1.3); CKMB 4.4 U/L (0.0-3.6); CREATINE KINASE 302 UL (21-215); LIPASE 141 U/L (73-393); MAGNESIUM - SERUM 2.1 mg/dL (1.8-2.4); PROTEIN - SERUM 7.2 g/dL (6.4-8.2)
[2020-07-21 16:31] LABS: TROPONIN-I < 0.017 ng/mL (0.000-0.060)
--- NOTE | 2020-07-21 16:36 | NUR ---
patient off unit
--- NOTE | 2020-07-21 17:00 | NUR ---
patient in CT
--- NOTE | 2020-07-21 17:08 | NUR ---
patient returned to Rm E6
[2020-07-21 17:54] LABS: UDS - AMPHET NEGATIVE QUAL (NEGATIVE); UDS - BARB NEGATIVE QUAL (NEGATIVE); UDS - BENZO NEGATIVE QUAL (NEGATIVE); UDS - COCAINE NEGATIVE QUAL (NEGATIVE); UDS - OPIATE NEGATIVE QUAL (NEGATIVE); UDS - PCP NEGATIVE QUAL (NEGATIVE); UDS - THC NEGATIVE QUAL (NEGATIVE)
[2020-07-21 18:04] VITALS: BP 182/85
--- NOTE | 2020-07-21 18:05 | NUR ---
PATIENT IN BED, SLEEPING. nURSE WOKE PATIENT. PATIENT DENIES ANY NEEDS AT THIS TIME. NO ACUTE DISTRESS OBSERVED
--- NOTE | 2020-07-21 20:14 | NUR ---
PATIENT UNABLE TO SCREEN HERSELF. SPOUSE DOES NOT KNOW HER MEDICAL HISTORY. SPOKE WITH DR BRICENO HE SAID TO CANCEL.
[2020-07-21 22:13] LABS: CKMB 3.4 U/L (0.0-3.6); CREATINE KINASE 256 UL (21-215)
[2020-07-21 22:15] LABS: TROPONIN-I < 0.017 ng/mL (0.000-0.060)
[2020-07-22] VITALS (13 sets, daily range): BP systolic 117–201; BP diastolic 82–117
--- NOTE | 2020-07-22 01:00 | NUR ---
ASSUMED PT CARE
[2020-07-22 04:18] LABS: BASOPHILS 0.2 % (0-2); EOSINOPHILS 3.2 % (0-7); HEMATOCRIT 35.6 % (36.0-48.0); HEMOGLOBIN 10.7 g/dL (12-16); IMMATURE GRANULOCYTES 0.1 % (0-5); LYMPHOCYTE ABS# 2.23 10x3/uL (1.18-3.74); LYMPHOCYTES 26.5 % (15-50); MCHC 30.1 g/dL (31.0-37.0); MCV 96.5 fL (80.0-100.0); MEAN PLATELET VOLUME 9.7 fL (7.4-10.4); MONOCYTES 9.3 % (2-11); NEUTROPHIL ABS# 5.12 10x3/uL (1.56-6.13); NEUTROPHILS 60.7 % (40-80); PLATELET COUNT 305 10x3/uL (130-400); RBC 3.69 10x6/uL (4.00-5.40); RDW 14.3 % (11.5-14.5); RETIC 1.69 % (0.45-2.28)
[2020-07-22 04:22] LABS: WBC 8.4 10x3/uL (4.8-10.8)
[2020-07-22 04:37] LABS: % SATURATION 11 % (15-55); IRON 45 ug/dl (35-150); TOTAL IRON BIND CAPACITY 377 ug/dl (260-445); UNSAT IRON BIND CAPACITY 332 ug/dl (150-375)
[2020-07-22 04:59] LABS: ALBUMIN 3.5 g/dL (3.4-5.0); ALKALINE PHOSPHATASE 68 U/L (30-120); ALT (SGPT) 32 U/L (10-68); CALCIUM 9.5 mg/dL (8.5-10.1); CARBON DIOXIDE 30.6 mmol/L (21.0-32.0); CHLORIDE - SERUM 106 mmol/L (98-107); CKMB 2.5 U/L (0.0-3.6); CREATINE KINASE 182 UL (21-215); FERRITIN 16 ng/mL (3-244); GLUCOSE 95 mg/dL (74-106); MAGNESIUM - SERUM 2.1 mg/dL (1.8-2.4); POTASSIUM - SERUM 3.9 mmol/L (3.5-5.1); PROTEIN - SERUM 6.8 g/dL (6.4-8.2); SODIUM 143 mmol/L (136-145); eGFR NON AFRICAN AMERICAN 60 mL/min (90-120)
[2020-07-22 05:05] LABS: CALC OSMOLALITY 283 mosm/kg (275-300); TROPONIN-I < 0.017 ng/mL (0.000-0.060); UREA NITROGEN 11 mg/dL (7-18)
--- NOTE | 2020-07-22 08:00 | NUR ---
PATIENT CALLED COURT ORDERLY LIGHT, UPON ENTERING PATIENT APPEARS AGITATED, STATES SHE IS UPSET WITH CARE. PATIENT STATES THAT SHE DOES NOT WANT TO INTERACT WITH BROOK[place]N KABA RN SHE IS TOO LOUD AND AGGRESSIVE, AND BECAUSE SHE REFUSES TO CALL DR REESE TO COME ROUND ON THE PATIENT TO SEND HER HOME AND BECAUSE SHE WOULD NOT SHUT THE DOOR DURING CONVERSATIONS TO PRESERVE HER PRIVACY. . PATIENT ALSO STATES THAT SHE IS EXTREMELY DISGRUNTLED AND UPSET WITH HER CARE WHILE IN THIS HOSPITAL. STATES THAT SHE WILL BE CALLING ADMINISTRATION BECAUSE SHE WAS NEVER ASSISTED TO [facility] YESTERDAY, AND THEREFORE URINATED ON HERSELF AND THE BEDSHEETS, AND THEN HAD TO SIT IN THEM FOR SEVERAL HOURS. PATIENT STATES THAT SHE FEELS NEGLECTED BY THIS NURSING STAFF AND MEDICAL STAFF. STATES "YOU ARE THE FIRST KIND NURSE I HAVE SEEN, YOU ARE ALSO THE FIRST ONE THAT USED THE COMPUTER HERE IN THE ROOM, NOBODY ELSE WOULD DO THAT WHEN I HAD QUESTIONS ABOUT MY CARE". PATIENT BP TRENDING UP, PATIENT CUSSING DURING CONVERSATION. PATIENT STATES THAT SHE IS LEAVING AMA IF DR REESE DOES NOT RESTART HER HOME MEDICATIONS, SHE IS SCARED FOR HER LIFE, THAT SHE WANTS DR MALDONADO AND DR REESE CALLED IMMEDIATELY AND NOTIFIED. PATIENT SPEAKING ON PHONE, NOTIFYING FAMILY THAT SHE WILL BE LEAVING SOON. PLAN OF CARE REVIEWED WITH PATIENT, ACTIVE LISTENING USED, ATTEMPTED TO COMFORT PATIENT. DR MALDONADO NOTIFIED OF PATIENT CONCERNS AT 0851, CLARIFIED IF SHE NEEDS TO CONTINUE 240MG OF CARDIZEM AT HOME, STATES THAT HE DOES WANT HER TO DO THIS, NO FURTHER ORDERS. DR REESE PAGED AT 0851 AND RETURNED PAGE AT 0912, NOTIFIED OF PATIENT STATEMENTS AND CONCERNS, NEW ORDERS RECEIVED FOR 75MG PLAVIX, 120MG CYMBALTA. CHARGE NURSE [place] AWARE OF PATIENT INTENT TO LEAVE WHETHER D/C OR AMA.
--- NOTE | 2020-07-22 08:58 | NUR ---
SPEAKING WITH PATIENT DAUGHTER IN LAW ON THE PHONE EXPLAINING HER FRUSTRATIONS AND THAT SHE HAS INTENTIONS OF LEAVING AMA IF DR REESE WILL NOT DISCHARGE HER AND GIVE HER THE HOME MEDICATIONS.
[2020-07-22] MEDS ORDERED: CARDIZEM120 MG PO (09:06)
--- NOTE | 2020-07-22 09:27 | NUR ---
DR MARIE IN ROOM. X 1 CYMBALTA AND X [address] AT BEDSIDE, NOTIFIED THAT 1MG ATIVAN AM AND 2MG ATIVAN HS HOME MEDS WERE D/C DUE TO CHANGE BUT THAT PATIENT NOW REPORTS A RX FOR 0.5MG DAILY. DR STATES HE WILL NOT BE ADMIN ANY CONTROLLED MEDICATIONS SINCE SHE IS INTENDING TO LEAVE. PATIENT CONTINUES TO BE UPSET. PATIENT FEELS STAFF IS BEING RUDE. PATIENT CONTINUES TO WANT TO LEAVE AMA. APOLOGIZED TO PATIENT AND ACTIVE LISTENING USED. PATIENT STATES "IT ISNT YOUR FAULT I WILL NEVER LET YOUR JOB BE UP FOR GRANTED. MY NAME GIVEN TO PATIENT PER REQUEST. CHARGE NURSE NAME GIVEN TO PATIENT PER REQUEST. PATIENT STATES THAT IF D/C PAPERS TAKE TOO LONG SHE WILL JUST SIGN OUT AMA. PATIENT ON PHONE WITH FAMILY DISCUSSING EVENTS OF CARE AND CONCERNS.
--- NOTE | 2020-07-22 09:35 | NUR ---
DISCHARGE PAPERWORK PENDING COMPLETION.
--- NOTE | 2020-07-22 09:47 | NUR ---
PATIENT UP TO BEDSIDE COMMODE.
--- NOTE | 2020-07-22 09:57 | NUR ---
ASSISTED BACK TO BED. PATIENT HAD VERY LARGE BM.
--- NOTE | 2020-07-22 10:21 | NUR ---
PATIENT D/C WITH INPATIENT DOCUMENTATION. SEE ER DEPART ASSESSMENT. PATIENT IN NAD AT TIME SHE WAS TAKEN TO POV WITH SON IN WHEELCHAIR. PATIENT WAS STATING HER LEFT BROW HAD A RED LEANDRO FROM HITTING THE CONCRETE AND SHE IS GOING TO REQUEST HER RECORDS AND CALL ADMINISTRATION BECAUSE NO MRI WAS DONE TO EXAMINE HER, AND SHE WANTS THE STAFF TO MAKE NOTE. PATIENT STATES "HONEY I REALLY HOPE THEY DONT BOTHER YOU OR GET YOU IN TROUBLE, WITHOUT YOU I WOULDNT BE ALIVE RIGHT NOW". PATIENT SON GIVEN PATIENT BELONGINGS PER PATIENT PERMISSION.
--- NOTE | 2020-07-23 13:58 | MORECARE ---
CASE MANAGEMENT DISCHARGE SUMMARY PATIENT: YU KUO UNIT: [id number] ADM DATE: 07/21/20 AGE: 59 : 58 SEX: F ROOM/BED: D.6 AUTHOR: GIDEON MOSCOSO PHYSICIAN: REFERRING PHYSICIAN: EFREN REESE DO DATE OF SERVICE: 07/23/20 Discharge Plan Patient Name: YU KUO Facility: [facility]:[place] : 1960 Planned Disposition: Anticipated Discharge Date: Discharge Date: 07/22/2020 Expected LOS: Initial Reviewer: [email or web address] Initial Review Date: 07/21/2020 Generated: 07/23/20 2:57 pm Patient Name: YU KUO Page [phone] at 1358 All edits/amendments must be made on the electronic document DICTATION DATE: 07/23/20 1357 AOC DIRECTOR COMBAT OPERATIONS OFFICER: CARMINA 07/23/20 1357 RPT#: [id number] DC DATE:07/22/20 STATUS: DIS IN [facility] [address] [place] [address] END OF REPORT
== END 2020-07-22 10:23 | disposition home or self-care (01) ==
LOC: D.ER 14:23 → D.EDHOLD 18:01 → OBSVTIME 18:01 → D.EDHOLD 20:29
PROVIDERS: Emergency Medicine; ADMIT Family Medicine; ATTEND Family Medicine
DX: I16.0 Hypertensive urgency (principal); R41.82 Altered mental status, unspecified; R07.9 Chest pain, unspecified; N18.9 Chronic kidney disease, unspecified; R55 Syncope and collapse; J45.909 Unspecified asthma, uncomplicated; Z86.73 Personal history of transient ischemic attack (TIA), and cerebral infarction without residual deficits; D63.1 Anemia in chronic kidney disease; I25.10 Atherosclerotic heart disease of native coronary artery without angina pectoris